=== PATIENT | female | born 1980 | race Caucasian/White ===

== ENCOUNTER 2020-11-05 22:00 | Emergency (ER) | payer OTHER ==
[2020-11-05 23:10] LABS: Anisocytosis Slight; Basophils % (A) 0 %; Eosinophils # (A) 0.1 k/uL (0-0.7); Eosinophils % (A) 0 %; HCT 30.5 % (34.0-46.0); HGB 10.3 gm/dL (11.4-16.0); Lymphocytes # (A) 2.7 k/uL (1.0-4.8); Lymphocytes % (A) 22 %; MCH 30.1 pg (25.0-35.0); MCHC 33.7 g/dL (31.0-37.0); MCV 89.2 fL (80.0-100.0); Mean Platelet Volume 6.2; Monocytes # (A) 0.7 k/uL (0-1.0); Monocytes % (A) 6 %; Neutrophils # (A) 8.7 k/uL (1.3-7.7); Neutrophils % (A) 70 %; Platelet Count 356 k/uL (150-450); RBC 3.42 m/uL (3.80-5.40); RDW 16.8 % (11.5-15.5); WBC 12.4 k/uL (3.8-10.6)
[2020-11-05 23:15] LABS: Calcium 8.8 mg/dL (8.4-10.2); Potassium 4.3 mmol/L (3.5-5.1)
[2020-11-06] LABS: Amphetamine Screen,Urine Not Detected (NotDetected); Benzodiazepines Screen,Urine Detected (NotDetected); Cocaine Screen,Urine Not Detected (NotDetected); Methadone Screen, Urine Not Detected (NotDetected); Opiate Screen,Urine Detected (NotDetected); Phencyclidine Screen,Urine Not Detected (NotDetected); Tricyclic Antidepressant,Urine Detected (NotDetected); Urn Cannabinoid Scrn Detected (NotDetected)
[2020-11-06 00:01] LABS: Barbiturate Screen,Urine Not Detected (NotDetected); Oxycodone Screen, Urine Not Detected (NotDetected)
--- NOTE | 2020-11-06 02:42 | ED ---
Overdose HPI - General Chief Complaint: Overdose Stated Complaint: Overdose Time Seen by Provider: 11/05/20 22:02 Source: EMS Mode of arrival: EMS Limitations: no limitations - History of Present Illness Initial Comments: Patient had passed out after snorting heroin. Motion Designer called EMS, who arrived and found patient awake and alert. Patient reportedly told police/senior case manager that she wished she was . Patient sts that she was feeling ashamed to have used, not having suicidal ideation. MD Complaint: accidental overdose -: minutes(s) How Overdose Was Discovered: family/friend present at time Context: Accidental Overdose: wanted to get high, medication error Treatments Prior to Arrival: none - Related Data Home Medications Medication Instructions Recorded Confirmed ALPRAZolam [Xanax] 1 mg PO TID 10/03/17 10/03/17 HYDROcodone/APAP 10-325MG [[place] 1 tab PO Q6H PRN 10/03/17 10/03/17 10-325] predniSONE [Deltasone] 20 mg PO BID 10/03/17 10/03/17 Previous Rx's Medication Instructions Recorded Sulfamethox-Tmp 800-160Mg [Bactrim 1 tab PO Q12HR #20 tab 10/03/17 DS 800-160 mg] Allergies Allergy/AdvReac Type Severity Reaction Status Date / Time No Known Allergies Allergy Verified 11/05/20 22:03 Review of Systems ROS Statement: Those systems with pertinent positive or pertinent negative responses have been documented in the HPI. ROS Other: All systems not noted in ROS Statement are negative. Constitutional: Denies: fever, chills Eyes: Denies: vision change Respiratory: Denies: cough, dyspnea Cardiovascular: Denies: chest pain, palpitations Gastrointestinal: Denies: abdominal pain, nausea, vomiting Genitourinary: Denies: dysuria, hematuria Musculoskeletal: Denies: back pain Skin: Denies: rash Neurological: Denies: headache, weakness Psychiatric: Denies: depression, visual hallucinations, homicidal thoughts, suicidal thoughts Past Medical History Past Medical History: COPD Additional Past Medical History / Comment(s): chiari type 1 malformation History of Any Multi-Drug Resistant Organisms: None Reported Past Surgical History: Back Surgery Additional Past Surgical History / Comment(s): lumbar fusion surgery Past Psychological History: Anxiety Smoking Status: Current some day smoker Past Alcohol Use History: Occasional Past Drug Use History: Heroin, Marijuana, Opiates General Exam Limitations: no limitations General appearance: alert, in no apparent distress Head exam: Present: atraumatic, normocephalic Eye exam: Present: normal appearance. Absent: scleral icterus, conjunctival injection Neck exam: Present: normal inspection Respiratory exam: Present: normal lung sounds bilaterally. Absent: respiratory distress, wheezes, rales, rhonchi, stridor Cardiovascular Exam: Present: normal rhythm, tachycardia, normal heart sounds. Absent: systolic murmur, diastolic murmur, rubs, gallop GI/Abdominal exam: Present: soft. Absent: distended, tenderness, guarding, rebound, rigid, mass Extremities exam: Present: normal inspection, normal capillary refill. Absent: pedal edema, calf tenderness Back exam: Present: normal inspection. Absent: CVA tenderness (R), CVA tenderness (L) Neurological exam: Present: alert, oriented X3 Psychiatric exam: Absent: homicidal ideation, suicidal ideation Skin exam: Present: warm, dry, normal color, other (large ulcer right forearm healing by secondary intention. No superinfection.) Course Vital Signs 11/05/20 11/05/20 11/06/20 22:04 23:55 01:55 Temperature 98.4 F Pulse Rate 128 H 112 H 88 Respiratory 24 20 18 Rate Blood Pressure 146/95 140/93 137/90 O2 Sat by Pulse 94 L 96 98 Oximetry 11/06/20 02:58 Temperature 98.0 F Pulse Rate 92 Respiratory 20 Rate Blood Pressure 131/92 O2 Sat by Pulse 99 Oximetry Medical Decision Making - Lab Data Result diagrams: 11/05/20 22:44 11/05/20 22:44 Lab Results 11/05/20 11/05/20 11/05/20 Range/Units 22:44 22:44 23:11 WBC 12.4 H (3.8-10.6) k/uL RBC 3.42 L (3.80-5.40) m/uL Hgb 10.3 L (11.4-16.0) gm/dL Hct 30.5 L (34.0-46.0) % MCV 89.2 (80.0-100.0) fL MCH 30.1 (25.0-35.0) pg MCHC 33.7 (31.0-37.0) g/dL RDW 16.8 H (11.5-15.5) % Plt Count 356 (150-450) k/uL MPV 6.2 Neutrophils % 70 % Lymphocytes % 22 % Monocytes % 6 % Eosinophils % 0 % Basophils % 0 % Neutrophils # 8.7 H (1.3-7.7) k/uL Lymphocytes # 2.7 (1.0-4.8) k/uL Monocytes # 0.7 (0-1.0) k/uL Eosinophils # 0.1 (0-0.7) k/uL Basophils # 0.0 (0-0.2) k/uL Anisocytosis Slight Sodium 134 L (137-145) mmol/L Potassium 4.3 (3.5-5.1) mmol/L Chloride 99 (98-107) mmol/L Carbon Dioxide 32 H (22-30) mmol/L Anion Gap 3 mmol/L BUN 22 H (7-17) mg/dL Creatinine 1.09 H (0.52-1.04) mg/dL Est GFR (CKD-EPI)AfAm 74 (>60 ml/min/1.73 sqM) Est GFR (CKD-EPI)NonAf 64 (>60 ml/min/1.73 sqM) Glucose 86 (74-99) mg/dL Calcium 8.8 (8.4-10.2) mg/dL Urine HCG, Qual Not Detected (Not Detectd) Urine Opiates Screen (NotDetected) Ur Oxycodone Screen (NotDetected) Urine Methadone Screen (NotDetected) Ur Propoxyphene Screen (NotDetected) Ur Barbiturates Screen (NotDetected) U Tricyclic Antidepress (NotDetected) Ur Phencyclidine Scrn (NotDetected) Ur Amphetamines Screen (NotDetected) U Methamphetamines Scrn (NotDetected) U Benzodiazepines Scrn (NotDetected) Urine Cocaine Screen (NotDetected) U Marijuana (THC) Screen (NotDetected) 11/05/20 Range/Units 23:11 WBC (3.8-10.6) k/uL RBC (3.80-5.40) m/uL Hgb (11.4-16.0) gm/dL Hct (34.0-46.0) % MCV (80.0-100.0) fL MCH (25.0-35.0) pg MCHC (31.0-37.0) g/dL RDW (11.5-15.5) % Plt Count (150-450) k/uL MPV Neutrophils % % Lymphocytes % % Monocytes % % Eosinophils % % Basophils % % Neutrophils # (1.3-7.7) k/uL Lymphocytes # (1.0-4.8) k/uL Monocytes # (0-1.0) k/uL Eosinophils # (0-0.7) k/uL Basophils # (0-0.2) k/uL Anisocytosis Sodium (137-145) mmol/L Potassium (3.5-5.1) mmol/L Chloride (98-107) mmol/L Carbon Dioxide (22-30) mmol/L Anion Gap mmol/L BUN (7-17) mg/dL Creatinine (0.52-1.04) mg/dL Est GFR (CKD-EPI)AfAm (>60 ml/min/1.73 sqM) Est GFR (CKD-EPI)NonAf (>60 ml/min/1.73 sqM) Glucose (74-99) mg/dL Calcium (8.4-10.2) mg/dL Urine HCG, Qual (Not Detectd) Urine Opiates Screen Detected H (NotDetected) Ur Oxycodone Screen Not Detected (NotDetected) Urine Methadone Screen Not Detected (NotDetected) Ur Propoxyphene Screen Not Detected (NotDetected) Ur Barbiturates Screen Not Detected (NotDetected) U Tricyclic Antidepress Detected H (NotDetected) Ur Phencyclidine Scrn Not Detected (NotDetected) Ur Amphetamines Screen Not Detected (NotDetected) U Methamphetamines Scrn Not Detected (NotDetected) U Benzodiazepines Scrn Detected H (NotDetected) Urine Cocaine Screen Not Detected (NotDetected) U Marijuana (THC) Screen Detected H (NotDetected) Disposition Clinical Impression: Accidental drug overdose Disposition: HOME SELF-CARE Condition: Good Instructions (If sedation given, give patient instructions): Adult Overdose (ED ) Is patient prescribed a controlled substance at d/c from ED?: No Referrals: None,Stated [Primary Care Provider] - 1-2 days
[2020-11-06 03:30] VITALS: BP 131/92; PULSE 92; RESP 20; TEMP 98
== END 2020-11-06 02:58 | disposition home or self-care (01) ==
LOC: EC 22:00
DX: T50.901A Poisoning by unspecified drugs, medicaments and biological substances, accidental (unintentional), initial encounter (principal); J44.9 Chronic obstructive pulmonary disease, unspecified; F41.9 Anxiety disorder, unspecified; F17.200 Nicotine dependence, unspecified, uncomplicated; F12.90 Cannabis use, unspecified, uncomplicated; F11.90 Opioid use, unspecified, uncomplicated; Z79.899 Other long term (current) drug therapy
CPT/HCPCS: 36415; 80048; 80306; 81025; 82075; 85025; 99284

== ENCOUNTER 2021-08-06 13:10 | Inpatient (IN) | payer OTHER ==
[2021-08-06] MEDS ORDERED: PANTOPRAZOLE 40 MG/10 ML VIAL IVP STA (13:54)
--- NOTE | 2021-08-06 14:09 | ED ---
General Adult HPI - General Chief complaint: Weakness Stated complaint: Weakness Time Seen by Provider: 08/06/21 13:54 Source: patient, RN notes reviewed Limitations: no limitations - History of Present Illness Initial comments: Patient is a pleasant 5-year-old female presenting to the emergency department with fatigue. Patient has mild chronic anemia significant worsening over just 6 months ago. Patient was at [facility] last week with hemoglobin of 3.4. Patient was given 2 units of blood with increased to 4.8. Patient has been home the past several days with increasing fatigue. Patient denies any bleeding. No red or bloody stools. - Related Data Home Medications Medication Instructions Recorded Confirmed ALPRAZolam [Xanax] 1 mg PO TID 10/03/17 10/03/17 HYDROcodone/APAP 10-325MG [[place] 1 tab PO Q6H PRN 10/03/17 10/03/17 10-325] predniSONE [Deltasone] 20 mg PO BID 10/03/17 10/03/17 Previous Rx's Medication Instructions Recorded Sulfamethox-Tmp 800-160Mg [Bactrim 1 tab PO Q12HR #20 tab 10/03/17 DS 800-160 mg] Allergies Allergy/AdvReac Type Severity Reaction Status Date / Time No Known Allergies Allergy Verified 08/06/21 13:41 Review of Systems ROS Statement: Those systems with pertinent positive or pertinent negative responses have been documented in the HPI. ROS Other: All systems not noted in ROS Statement are negative. Constitutional: Denies: fever Eyes: Denies: eye pain ENT: Denies: ear pain Respiratory: Denies: cough Cardiovascular: Denies: chest pain Endocrine: Reports: fatigue Gastrointestinal: Denies: abdominal pain, hematemesis, melena, hematochezia Genitourinary: Denies: dysuria Musculoskeletal: Denies: back pain Skin: Denies: rash Neurological: Denies: weakness Past Medical History Past Medical History: COPD Additional Past Medical History / Comment(s): chiari type 1 malformation, anemia History of Any Multi-Drug Resistant Organisms: None Reported Past Surgical History: Back Surgery Additional Past Surgical History / Comment(s): lumbar fusion surgery Past Psychological History: Anxiety Smoking Status: Former smoker Past Alcohol Use History: Occasional Past Drug Use History: Heroin, Marijuana, Opiates General Exam Limitations: no limitations General appearance: alert, in no apparent distress Head exam: Present: normocephalic Eye exam: Present: normal appearance Neck exam: Present: normal inspection Respiratory exam: Present: normal lung sounds bilaterally Cardiovascular Exam: Present: regular rate, normal rhythm GI/Abdominal exam: Present: soft. Absent: tenderness Extremities exam: Present: normal inspection. Absent: pedal edema, calf tenderness Neurological exam: Present: alert Psychiatric exam: Present: normal affect, normal mood Skin exam: Present: normal color Course Vital Signs 08/06/21 13:35 Temperature 98 F Pulse Rate 105 H Respiratory 18 Rate Blood Pressure 136/70 O2 Sat by Pulse 93 L Oximetry EKG Findings - EKG Comments: EKG Findings:: Sinus rhythm with a rate of 96. DC 136. QRS 81. QT 329. QTc 382. Normal axis. Normal QRS. Borderline ST changes V3 V4. Medical Decision Making - Medical Decision Making Patient reevaluated and updated. Troponin added. Case was discussed with Dr. Xie who did evaluate patient and will admit his patient with hematology consult. - Lab Data Result diagrams: 08/06/21 14:01 08/06/21 14:01 Lab Results 08/06/21 08/06/21 08/06/21 Range/Units 13:45 14:01 14:01 WBC 12.9 H (3.8-10.6) k/uL RBC 2.51 L (3.80-5.40) m/uL Hgb 6.8 L* (11.4-16.0) gm/dL Hct 22.9 L (34.0-46.0) % MCV 91.4 (80.0-100.0) fL MCH 27.0 (25.0-35.0) pg MCHC 29.6 L (31.0-37.0) g/dL RDW 18.6 H (11.5-15.5) % Plt Count 479 H (150-450) k/uL MPV 7.8 Neutrophils % 61 % Lymphocytes % 29 % Monocytes % 5 % Eosinophils % 3 % Basophils % 0 % Neutrophils # 7.9 H (1.3-7.7) k/uL Lymphocytes # 3.7 (1.0-4.8) k/uL Monocytes # 0.7 (0-1.0) k/uL Eosinophils # 0.4 (0-0.7) k/uL Basophils # 0.0 (0-0.2) k/uL Hypochromasia Marked Poikilocytosis Moderate Anisocytosis Slight PT 9.6 (9.0-12.0) sec INR 0.9 (<1.2) APTT 18.2 L (22.0-30.0) sec Sodium (137-145) mmol/L Potassium (3.5-5.1) mmol/L Chloride (98-107) mmol/L Carbon Dioxide (22-30) mmol/L Anion Gap mmol/L BUN (7-17) mg/dL Creatinine (0.52-1.04) mg/dL Est GFR (CKD-EPI)AfAm (>60 ml/min/1.73 sqM) Est GFR (CKD-EPI)NonAf (>60 ml/min/1.73 sqM) Glucose (74-99) mg/dL Calcium (8.4-10.2) mg/dL Total Bilirubin (0.2-1.3) mg/dL AST (14-36) U/L ALT (4-34) U/L Alkaline Phosphatase (38-126) U/L Total Protein (6.3-8.2) g/dL Albumin (3.5-5.0) g/dL Urine Color Yellow Urine Appearance Clear (Clear) Urine pH 6.0 (5.0-8.0) Ur Specific [place] 1.027 (1.001-1.035) Urine Protein Negative (Negative) Urine Glucose (UA) Negative (Negative) Urine Ketones Negative (Negative) Urine Blood Negative (Negative) Urine Nitrite Negative (Negative) Urine Bilirubin Negative (Negative) Urine Urobilinogen <2.0 (<2.0) mg/dL Ur Leukocyte Esterase Small H (Negative) Urine RBC 1 (0-5) /hpf Urine WBC 1 (0-5) /hpf Ur Squamous Epith Cells 1 (0-4) /hpf Hyaline Casts 3 H (0-2) /lpf Urine Mucus Rare H (None) /hpf 08/06/21 Range/Units 14:01 WBC (3.8-10.6) k/uL RBC (3.80-5.40) m/uL Hgb (11.4-16.0) gm/dL Hct (34.0-46.0) % MCV (80.0-100.0) fL MCH (25.0-35.0) pg MCHC (31.0-37.0) g/dL RDW (11.5-15.5) % Plt Count (150-450) k/uL MPV Neutrophils % % Lymphocytes % % Monocytes % % Eosinophils % % Basophils % % Neutrophils # (1.3-7.7) k/uL Lymphocytes # (1.0-4.8) k/uL Monocytes # (0-1.0) k/uL Eosinophils # (0-0.7) k/uL Basophils # (0-0.2) k/uL Hypochromasia Poikilocytosis Anisocytosis PT (9.0-12.0) sec INR (<1.2) APTT (22.0-30.0) sec Sodium 133 L (137-145) mmol/L Potassium 4.3 (3.5-5.1) mmol/L Chloride 99 (98-107) mmol/L Carbon Dioxide 30 (22-30) mmol/L Anion Gap 4 mmol/L BUN 17 (7-17) mg/dL Creatinine 0.68 (0.52-1.04) mg/dL Est GFR (CKD-EPI)AfAm >90 (>60 ml/min/1.73 sqM) Est GFR (CKD-EPI)NonAf >90 (>60 ml/min/1.73 sqM) Glucose 78 (74-99) mg/dL Calcium 9.0 (8.4-10.2) mg/dL Total Bilirubin 0.4 (0.2-1.3) mg/dL AST 27 (14-36) U/L ALT 10 (4-34) U/L Alkaline Phosphatase 51 (38-126) U/L Total Protein 6.4 (6.3-8.2) g/dL Albumin 3.5 (3.5-5.0) g/dL Urine Color Urine Appearance (Clear) Urine pH (5.0-8.0) Ur Specific [place] (1.001-1.035) Urine Protein (Negative) Urine Glucose (UA) (Negative) Urine Ketones (Negative) Urine Blood (Negative) Urine Nitrite (Negative) Urine Bilirubin (Negative) Urine Urobilinogen (<2.0) mg/dL Ur Leukocyte Esterase (Negative) Urine RBC (0-5) /hpf Urine WBC (0-5) /hpf Ur Squamous Epith Cells (0-4) /hpf Hyaline Casts (0-2) /lpf Urine Mucus (None) /hpf Disposition Clinical Impression: Anemia Disposition: ADMITTED IP TO THIS HOSP Is patient prescribed a controlled substance at d/c from ED?: No Referrals: Domenico Xie MD [Primary Care Provider] - 1-2 days Decision Time: 15:12
[2021-08-06 14:25] LABS: Appearance,Urine Clear (Clear); Bilirubin,Urine Negative (Negative); Blood,Urine Negative (Negative); Color,Urine Yellow; Glucose,Urine (UA) Negative (Negative); Hyaline Casts,Urine 3 /lpf (0-2); Ketones,Urine Negative (Negative); Leukocyte Esterase,Urine Small (Negative); Mucus,Urine Rare /hpf; Nitrite,Urine Negative (Negative); Protein,Urine Negative (Negative); RBC,Urine 1 /hpf (0-5); Specific Gravity,Urine 1.027 (1.001-1.035); Squamous Epithelial Cell,Urine 1 /hpf (0-4); Urobilinogen,Urine <2.0 mg/dL (<2.0); WBC,Urine 1 /hpf (0-5)
--- NOTE | 2021-08-06 14:34 | XR ---
EXAMINATION TYPE: XR chest 2V DATE OF EXAM: 08/06/2021 COMPARISON: NONE HISTORY: Chest pain TECHNIQUE: Frontal and lateral views of the chest are obtained. FINDINGS: There is no focal air space opacity. No evidence for pneumothorax. No pleural effusion. The cardiac silhouette size is within normal limits. The osseous structures are grossly intact. IMPRESSION: 1. No acute cardiopulmonary process.
[2021-08-06 14:41] LABS: Anisocytosis Slight; Basophils % (A) 0 %; Eosinophils # (A) 0.4 k/uL (0-0.7); Eosinophils % (A) 3 %; HCT 22.9 % (34.0-46.0); Hypochromasia Marked; Lymphocytes # (A) 3.7 k/uL (1.0-4.8); Lymphocytes % (A) 29 %; MCHC 29.6 g/dL (31.0-37.0); MCV 91.4 fL (80.0-100.0); Mean Platelet Volume 7.8; Monocytes # (A) 0.7 k/uL (0-1.0); Monocytes % (A) 5 %; Neutrophils # (A) 7.9 k/uL (1.3-7.7); Neutrophils % (A) 61 %; Platelet Count 479 k/uL (150-450); Poikilocytosis Moderate; RBC 2.51 m/uL (3.80-5.40); RDW 18.6 % (11.5-15.5); WBC 12.9 k/uL (3.8-10.6)
[2021-08-06 14:44] LABS: ALT 10 U/L (4-34); AST 27 U/L (14-36); African American GFR (CKD) >90 (>60 ml/min/1.73 sqM); Albumin 3.5 g/dL (3.5-5.0); Alkaline Phosphatase 51 U/L (38-126); Anion Gap 4 mmol/L; Blood Urea Nitrogen 17 mg/dL (7-17); Carbon Dioxide 30 mmol/L (22-30); Chloride 99 mmol/L (98-107); Glucose 78 mg/dL (74-99); Non-African American GFR(CKD) >90 (>60 ml/min/1.73 sqM); Potassium 4.3 mmol/L (3.5-5.1); Sodium 133 mmol/L (137-145); Total Bilirubin 0.4 mg/dL (0.2-1.3); Total Protein 6.4 g/dL (6.3-8.2)
[2021-08-06 14:47] LABS: HGB 6.8 gm/dL (11.4-16.0)
[2021-08-06 14:52] LABS: INR 0.9 (<1.2); Prothrombin Time 9.6 sec (9.0-12.0)
[2021-08-06 15:03] LABS: Partial Thromboplastin Time 18.2 sec (22.0-30.0)
[2021-08-06] MEDS ORDERED: HYDROcodone/APAP 10-325MG 1 EACH TAB PO ONE (15:09)
[2021-08-06] MEDS ORDERED: NALOXONE 0.4 MG/ML 1 ML VIAL IV PRN (15:12)
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
[2021-08-06] MEDS ORDERED: ALBUTEROL NEBULIZED 2.5 MG/3 ML INHALATION PRN (20:14)
[2021-08-06] MEDS ORDERED: ONDANSETRON 4 MG TAB PO PRN (20:46)
[2021-08-06] MEDS ORDERED: LORazepam 1 MG TAB PO PRN (20:47)
[2021-08-06] MEDS: CYCLOBENZAPRINE 10 MG TAB PO SCH (21:53)
[2021-08-06] MEDS: HYDROcodone/APAP 10-325MG 1 EACH TAB PO PRN (22:51)
[2021-08-07] MEDS: FERROUS SULFATE 325 MG TAB PO SCH (09:01)
[2021-08-07] MEDS: PANTOPRAZOLE 40 MG/10 ML VIAL IV SCH (09:02)
[2021-08-07] MEDS: ALPRAZolam 1 MG TAB PO PRN ×2 (09:19→19:27)
[2021-08-07] MEDS: HYDROcodone/APAP 10-325MG 1 EACH TAB PO PRN ×2 (09:19→16:40)
[2021-08-07 11:37] LABS: Basophils # (A) 0.02 X 10*3/uL (0.00-0.10); Basophils % (A) 0.2 %; Eosinophils # (A) 0.42 X 10*3/uL (0.04-0.35); Eosinophils % (A) 4.8 %; HCT 24.7 % (37.2-46.3); HGB 7.1 g/dL (12.0-15.0); Immature Grans, Automated 0.5 %; Lymphocytes # (A) 3.43 X 10*3/uL (0.90-5.00); Lymphocytes % (A) 39.4 %; MCH 27.1 pg (27.0-32.0); MCHC 28.7 g/dL (32.0-37.0); MCV 94.3 fL (80.0-97.0); Mean Platelet Volume 8.8 fL (9.5-12.2); Monocytes # (A) 0.83 X 10*3/uL (0.20-1.00); Monocytes % (A) 9.5 %; NRBC Per 100 WBC 0.2 /100 WBCS (0.0-0.0); Neutrophils # (A) 3.96 X 10*3/uL (1.80-7.70); Neutrophils % (A) 45.6 %; Platelet Count 336 X 10*3/uL (140-440); RBC 2.62 X 10*6/uL (4.10-5.20); RDW 19.5 % (11.5-14.5)
[2021-08-07 11:59] LABS: African American GFR (CKD) 140.2 (60.0-200.0); Anion Gap 7.2 mmol/L (10.00-18.00); BUN/Creat Ratio 15.93 Ratio (12.00-20.00); Calcium 8.6 mg/dL (8.7-10.3); Carbon Dioxide 28.7 mmol/L (20.0-27.5); Potassium 4.6 mmol/L (3.5-5.5)
[2021-08-07] MEDS: HYDROmorphone 1 MG/ML 1 ML SYRINGE IVP PRN ×2 (13:31→22:02)
--- NOTE | 2021-08-07 15:13 | CONS ---
CONSULTATION DATE OF SERVICE: 08/07/2021 REASON FOR CONSULTATION: Anemia. CHIEF COMPLAINT: Weakness. Thelma is a pleasant 41-year-old lady who presented to the emergency department with progressive fatigue. The patient has been under the care of Dr. Xie, who referred her for admission because of progressive fatigue. She was found to be significantly anemic. She ended up being admitted to the hospital and she received blood transfusion with packed red blood cells. The patient apparently has had chronic anemia for a long time; however, there was recent worsening in her anemia. She did require blood transfusion recently at [facility], and she stated that in the summer of 2020 she was also admitted to [facility] and had a blood transfusion; and also she had a GI workup. The patient denied any fever or chills. She said she had COVID around this past [place] and she has had some choking since then. She is chronically fatigued and tired and she has chronic back pain. She denies any melena, hematochezia, hematuria or hemoptysis. No fever or chills. Her weight has been relatively been relatively stable. No change in her bowel habits. She says she has very occasional and light menstrual periods. She denies any use of NSAIDs or aspirin. PAST MEDICAL HISTORY: Significant for COPD, Chiari-type malformation, lumbar fusion in the past. She has anxiety. She used to use heroin, marijuana and opioids in the past. CURRENT MEDICATION: Reviewed in her electronic medical record. PHYSICAL EXAMINATION: Alert and oriented x3. She does not appear to be in distress. VITAL SIGNS: Temperature 98.2, pulse 87, respiration 20, blood pressure 114/74. HEENT: Normocephalic, atraumatic. No icterus. Neck is supple. CHEST: Equal expansion bilaterally. Lungs are clear to auscultation and percussion. Heart has regular rate and rhythm. Abdomen is soft. No tenderness or organomegaly. Extremities revealed no edema. LYMPHATICS: No peripheral cervical or supraclavicular nodes. MUSCULOSKELETAL: Moving all extremities appropriately. No percussion tenderness over spine or sternum. LABORATORY DATA UPON ADMISSION: WBC of 12.9, hemoglobin 6.8, hematocrit 22.9. Platelets 417. Sodium 139, potassium 4.6, chloride 105. CO2 is 28.7. BUN is 8.0, creatinine 0.1. AST is 27, ALT is 10, alkaline phosphatase 51. IMPRESSION AND RECOMMENDATIONS: Anemia. There is no obvious source to explain blood loss anemia. I am not sure whether her previous laboratory workup done as an outpatient or at [facility] revealed evidence of iron deficiency anemia. I will obtain those records. She also stated she had a GI workup and no obvious source of blood loss anemia was found. Those records will be obtained as well. For the time being, her hemoglobin improved after blood transfusion. If her hemoglobin remains stable, then she would require further evaluation of her recurrent anemia in the outpatient setting. Once her previous reports are obtained and reviewed, then further decisions in regard to her workup for anemia will be made. The above was discussed in detail with the patient. I have answered all of her questions. JUAN DAVID / LESLEE: [id number] /
[2021-08-07] MEDS ORDERED: ALBUTEROL HFA INHALER INHALATION PRN (16:05)
--- NOTE | 2021-08-07 16:20 | PN ---
PROGRESS NOTE I am covering for Dr. Xie. DATE OF SERVICE: 08/07/2021 This 41-year-old woman who was admitted with generalized weakness was found to have significant anemia. The patient also had recent COVID-19 infection. The patient was transfused and hemoglobin is currently 7.1, improved from 6.8. The patient also has some nucleated RBCs in the peripheral smear. COVID-19 is still positive. Patient had multiple transfusions at [facility], also. Dr. Wild is seeing the patient and recommended obtaining the old records and continuing to monitor the hemoglobin. Past medical history reviewed. REVIEW OF SYSTEMS: CARDIOVASCULAR SYSTEM: No angina. RESPIRATION: As mentioned earlier. GI: As mentioned earlier. : No dysuria. NERVOUS SYSTEM: No numbness, weakness. CURRENT MEDICATIONS: Reviewed. They include [place], Xanax, Flexeril, iron sulfate, Dilaudid, Narcan. PHYSICAL EXAMINATION: Patient is alert and oriented x3. Pulse 86, blood pressure 140/70, respiration 20, temperature 98.2, pulse ox 100% on 4 L. HEENT: Conjunctivae pale. NECK: No jugular venous distention. CARDIOVASCULAR: S1, S2 muffled. RESPIRATION: Breath sounds diminished at the bases. A few scattered rhonchi. ABDOMEN: Soft, nontender. LEGS: No edema. No swelling. NERVOUS SYSTEM: No focal deficit. LABS: Labs at this time show WBC 8.7, hemoglobin 7.1. ASSESSMENT: 1. Acute on chronic anemia for evaluation. 2. Rule out gastrointestinal blood loss anemia. 3. Rule out hematological abnormalities. 4. Hyponatremia. 5. COVID-19 positive. 6. Chronic obstructive pulmonary disease. 7. Chiari-type 1 malformation. 8. History of anemia. 9. History of anxiety. RECOMMENDATIONS AND DISCUSSION: In this 41-year-old woman who presented with multiple complex medical issues and anemia, at this time I recommend continuing to monitor the CBC and BMP. Continue with iron supplementation. Otherwise, the patient previously had apparently a colonoscopy. Also recommend surgical consultation for possible upper endoscopy to rule out any upper GI source of bleeding. The prognosis is guarded because of multiple complex medical issues. Further recommendations to follow. See orders for further details. MMODL / IJN: [id number] / MTDD
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
[2021-08-07] MEDS: CYCLOBENZAPRINE 10 MG TAB PO SCH (20:52)
[2021-08-08] MEDS: HYDROcodone/APAP 10-325MG 1 EACH TAB PO PRN ×4 (00:02→18:04)
[2021-08-08] MEDS: PANTOPRAZOLE 40 MG/10 ML VIAL IV SCH (07:30)
[2021-08-08] MEDS: HYDROmorphone 1 MG/ML 1 ML SYRINGE IVP PRN ×2 (07:30→16:12)
[2021-08-08] MEDS: FERROUS SULFATE 325 MG TAB PO SCH (07:30)
[2021-08-08] MEDS: ALPRAZolam 1 MG TAB PO PRN ×2 (10:14→20:31)
--- NOTE | 2021-08-08 12:06 | P.GSCN ---
History of Present Illness Consult date: 08/08/21 Reason for Consult: Anemia History of present illness: This a 41-year-old female who was admitted to the hospital with anemia. Patient just had a recent hospital admission at [facility] for anemia. She states her pain was in the 3 range. She states that she has had some intermittent rectal bleeding with melanotic stools in the past. The patient denies any active GI bleed today. Past Medical History Past Medical History: COPD Additional Past Medical History / Comment(s): chiari type 1 malformation, anemia History of Any Multi-Drug Resistant Organisms: None Reported Past Surgical History: Back Surgery Additional Past Surgical History / Comment(s): lumbar fusion surgery Past Psychological History: Anxiety Smoking Status: Former smoker Past Alcohol Use History: Occasional Past Drug Use History: Heroin, Marijuana, Opiates Medications and Allergies Home Medications Medication Instructions Recorded Confirmed Type ALPRAZolam [Xanax] 1 mg PO TID PRN 10/03/17 08/06/21 History HYDROcodone/APAP 10-325MG [[place] 1 tab PO Q6H PRN 10/03/17 08/06/21 History 10-325] predniSONE [Deltasone] 20 mg PO BID 10/03/17 08/06/21 History Albuterol Nebulized [Ventolin 2.5 mg INHALATION RT-QID PRN 08/06/21 08/06/21 History Nebulized] Albuterol Sulfate [Ventolin HFA] 1 - 2 puff INHALATION RT-Q4H PRN 08/06/21 08/06/21 History Cyclobenzaprine [Flexeril] 10 mg PO HS 08/06/21 08/06/21 History Ferrous Sulfate [Feosol] 325 mg PO DAILY 08/06/21 08/06/21 History Furosemide [Lasix] 20 mg PO BID 08/06/21 08/06/21 History Qvar(Unknown) 2 puff INHALATION RT-BID 08/06/21 08/06/21 History Allergies Allergy/AdvReac Type Severity Reaction Status Date / Time fentanyl AdvReac Hallucinati Verified 08/06/21 15:48 ons Surgical - Exam Vital Signs Temp Pulse Resp BP Pulse Ox 98 F 105 H 18 136/70 93 L 08/06/21 13:35 08/06/21 13:35 08/06/21 13:35 08/06/21 13:35 08/06/21 13:35 - General well developed, well nourished, no distress - Eyes PERRL - ENT normal pinna - Neck no masses - Respiratory normal expansion - Cardiovascular Rhythm: regular - Abdomen Abdomen: soft, non tender Results - Labs 08/07/21 07:11 08/07/21 07:11 Assessment and Plan Assessment: Anemia with history of GI bleed. Patient undergo EGD and colonoscopy in the a.m.
[2021-08-08] MEDS ORDERED: PEG 3350-NA SULF,BICARB,CL/KCL 4,000 ML BOTTLE PO ONE (12:30)
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
--- NOTE | 2021-08-08 19:22 | PN ---
PROGRESS NOTE DATE OF SERVICE: 08/08/2021 This 41-year-old woman who was admitted with acute on chronic anemia is also being evaluated for GI blood loss anemia. The patient is cleared to have EGD tomorrow by Surgery. The hemoglobin is only 7.1. COVID-19 is positive. Hematology/Oncology is following the patient closely. Past medical history reviewed. REVIEW OF SYSTEMS: CARDIOVASCULAR SYSTEM: No angina. RESPIRATION: As mentioned earlier. GI: As mentioned earlier. : No dysuria. NERVOUS SYSTEM: No numbness, weakness. CURRENT MEDICATIONS: Reviewed. They include [place], Ventolin, Xanax, Flexeril, iron sulfate, Dilaudid. PHYSICAL EXAMINATION: Pulse 88, blood pressure 155/97, respirations 17, temperature 98.2. HEENT: Conjunctivae pale. Oral mucosa pale. CARDIOVASCULAR: S1, S2 muffled. RESPIRATION: Breath sounds diminished at the bases. A few scattered rhonchi. ABDOMEN: Soft, nontender. NERVOUS SYSTEM: No focal deficit. LABS: WBC 8.6, hemoglobin 7.1. Sodium 139, potassium 4.6. ASSESSMENT: 1. Acute on chronic anemia for evaluation. 2. Rule out gastrointestinal blood loss anemia. 3. Rule out hematological abnormalities. 4. Hyponatremia. 5. COVID-19 positive. 6. Chronic obstructive pulmonary disease. 7. Chiari type 1 malformation. RECOMMENDATIONS AND DISCUSSION: I recommend to continue current medications, continue with the monitoring, symptomatic treatment. See orders for further details. Labs are ordered. Repeat CBC. Otherwise, closely follow with Hematology/Oncology. EGD per Surgery. Prognosis guarded. Further recommendations to follow. MMODL / IJN: [id number] /
[2021-08-08 19:27] LABS: Reticulocyte % 3.6 % (0.5-2.0)
[2021-08-08 19:33] LABS: C Reactive Protein 0.7 mg/dL (<1.0); LDH 340 U/L (313-618)
[2021-08-08] MEDS: FLUTICASONE 110 MCG INHALER INHALATION SCH (19:45)
[2021-08-08] MEDS: CYCLOBENZAPRINE 10 MG TAB PO SCH (20:31)
[2021-08-08 21:08] LABS: Erythrocyte Sedimentation Rate 47 mm/hr (0-20)
[2021-08-09] MEDS: HYDROmorphone 1 MG/ML 1 ML SYRINGE IVP PRN ×2 (00:17→09:17)
[2021-08-09 09:07] LABS: Basophils # (A) 0.01 X 10*3/uL (0.00-0.10); Basophils % (A) 0.1 %; Eosinophils # (A) 0.49 X 10*3/uL (0.04-0.35); Eosinophils % (A) 5.5 %; HCT 30.5 % (37.2-46.3); HGB 8.9 g/dL (12.0-15.0); Immature Grans, Automated 0.3 %; Lymphocytes # (A) 3.11 X 10*3/uL (0.90-5.00); Lymphocytes % (A) 34.7 %; MCH 26.8 pg (27.0-32.0); MCHC 29.2 g/dL (32.0-37.0); MCV 91.9 fL (80.0-97.0); Monocytes # (A) 0.95 X 10*3/uL (0.20-1.00); Monocytes % (A) 10.6 %; NRBC Per 100 WBC 0 /100 WBCS (0.0-0.0); Neutrophils # (A) 4.37 X 10*3/uL (1.80-7.70); Neutrophils % (A) 48.8 %; Platelet Count 414 X 10*3/uL (140-440); RBC 3.32 X 10*6/uL (4.10-5.20); WBC 8.96 X 10*3/uL (4.50-10.00)
[2021-08-09 09:14] LABS: ALT 9 U/L (8-44); AST 11 U/L (13-35); African American GFR (CKD) 132.9 (60.0-200.0); Albumin 3.5 g/dL (3.8-4.9); Alkaline Phosphatase 66 U/L (41-126); BUN/Creat Ratio 17.97 Ratio (12.00-20.00); Blood Urea Nitrogen 10.6 mg/dL (9.0-27.0); Calcium 8.9 mg/dL (8.7-10.3); Chloride 100 mmol/L (96-109); Globulin 2.5 g/dL (1.6-3.3); Glucose 78 mg/dL (70-110); Non-African American GFR(CKD) 114.7 (60.0-200.0); Potassium 4.6 mmol/L (3.5-5.5); Sodium 135 mmol/L (135-145); Total Bilirubin <0.15 mg/dL (0.30-1.20); Total Protein 5.9 g/dL (6.2-8.2)
[2021-08-09] MEDS: PANTOPRAZOLE 40 MG/10 ML VIAL IV SCH (09:20)
[2021-08-09] MEDS: FLUTICASONE 110 MCG INHALER INHALATION SCH (09:49)
[2021-08-09] MEDS: ALPRAZolam 1 MG TAB PO PRN (10:24)
[2021-08-09] MEDS: HYDROcodone/APAP 10-325MG 1 EACH TAB PO PRN (11:44)
[2021-08-09] MEDS ORDERED: PROPOFOL 10 MG/ML 20 ML VIAL IV ONE (14:20)
[2021-08-09] MEDS ORDERED: LIDOCAINE 1% INJ 10MG/ML (20 ML MDV) ONE (14:20)
[2021-08-09] MEDS ORDERED: SODIUM CHLORIDE 0.9% 1,000 ML IV ONE (14:23)
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
[2021-08-09 15:03] VITALS: RESP 16; TEMP 97.6
--- NOTE | 2021-08-09 16:01 | P.PN ---
Subjective Progress Note Date: 08/09/21 Principal diagnosis: anemia In f/u today pt denies chest pain, bleeding, heavy menses, she does not use ibuprofen, motrin, asa, anticoagulation. No current bleeding to report. She is covid positive Objective - Vital Signs Vital signs: Vital Signs Temp 98.4 F 08/09/21 09:34 Pulse 105 H 08/09/21 09:34 Resp 18 08/09/21 09:34 BP 116/60 08/09/21 09:34 Pulse Ox 97 08/09/21 09:34 Intake & Output 08/08/21 08/09/21 08/09/21 18:59 06:59 18:59 Intake Total 500 Balance 500 Intake: Oral 500 Other: # Voids 2 2 - Exam Hands on exam deferred 2/ covid infection - Constitutional General appearance: Present: average body habitus, cooperative, no acute distress - EENT Eyes: Present: anicteric sclerae, EOMI ENT: Present: hearing grossly normal - Respiratory Details: resp even and unlabored at rest - Integumentary Integumentary: Present: pale - Neurologic Neurologic: Present: CNII-XII intact - Musculoskeletal Musculoskeletal: Present: strength equal bilaterally - Psychiatric Psychiatric: Present: A&O x's 3, appropriate affect, intact judgment & insight - Labs CBC & Chem 7: 08/09/21 06:48 08/09/21 06:48 Labs: Abnormal Lab Results - Last 24 Hours (Table) 08/08/21 08/09/21 08/09/21 Range/Units 18:59 06:48 06:48 RBC 3.32 L (4.10-5.20) X 10*6/uL Hgb 8.9 L (12.0-15.0) g/dL Hct 30.5 L (37.2-46.3) % MCH 26.8 L (27.0-32.0) pg MCHC 29.2 L (32.0-37.0) g/dL RDW 19.0 H (11.5-14.5) % MPV 9.0 L (9.5-12.2) fL Eosinophils # 0.49 H (0.04-0.35) X 10*3/uL ESR 47 H (0-20) mm/hr Retic Count 3.6 H (0.5-2.0) % Anion Gap 9.70 L (10.00-18.00) mmol/L Total Bilirubin <0.15 L (0.30-1.20) mg/dL AST 11 L (13-35) U/L Total Protein 5.9 L (6.2-8.2) g/dL Albumin 3.5 L (3.8-4.9) g/dL Albumin/Globulin Ratio 1.40 L (1.60-3.17) g/dL Assessment and Plan (1) COVID-19 Narrative/Plan: Currently mild symptoms. Defer mgmt to IM Current Visit: Yes Status: Acute Priority: High Code(s): U07.1 - COVID-19 SNOMED Code(s): 949385628 (2) Anemia Narrative/Plan: Pt had work up for anemia Jan 2021 at [facility]. Will get documents, testing results and place in this medical record. Iron studies on pre-transfusion blood if able Current Visit: Yes Status: Acute Priority: High Code(s): D64.9 - ANEMIA, UNSPECIFIED SNOMED Code(s): 470732410 Plan: Doctor attests: I performed a history and physical examination of this patient, developed impression and plan of care, discussed with dictator. I agree with dictators note, documented as a scribe.
[2021-08-09] MEDS: FERROUS SULFATE 325 MG TAB PO SCH (16:06)
[2021-08-09 16:41] VITALS: BP 122/83; PULSE 93
[2021-08-10 00:40] LABS: % Iron Saturation 3.62 (12.00-45.00); Ferritin 32.9 ng/mL (10.0-291.0)
--- NOTE | 2021-08-10 14:40 | P.DS ---
Providers Date of admission: 08/06/21 15:12 Expected date of discharge: 08/09/21 Attending physician: Domenico Xie Consults: 08/06/21 15:13 Consult Physician Routine Consulting Provider: Jez Marr Consult Reason/Comments: anemia Do you want consulting provider notified?: Yes 08/06/21 15:16 Consult Physician Urgent Consulting Provider: Abdiaziz Engle Consult Reason/Comments: cardiac eval Do you want consulting provider notified?: Yes 08/07/21 11:57 Consult Physician Routine Consulting Provider: Willy Quan Consult Reason/Comments: EGD Do you want consulting provider notified?: Yes Primary care physician: Domenico Xie Hospital Course: Final diagnosis Acute on chronic anemia for evaluation Rule out gastrointestinal blood loss anemia Rule out hematological abnormalities Hyponatremia COVID-19 positive chronic obstructive pulmonary disease Chiari type I malformation Discharge disposition Patient is being discharged in a stable condition with guarded prognosis to home. Patient will follow-up with Dr. Xie in the outpatient setting upon discharge. Patient is to also follow-up with general surgery for outpatient colonoscopy. Recommend repeat labs to monitor CBC and prescription was provided. Total time taken is greater than 35 minutes. Hospital course This is a 41-year-old female who was recently admitted acute on chronic anemia also being closely monitored by general surgery for GI blood loss anemia and scheduled to undergo EGD with colonoscopy although patient was not prepped enough and continued with stool noted on colonoscopy and will follow-up outpatient with Dr. Quan. Hemoglobin improved to 8.6 today and recommend repeat labs in 2-3 days to monitor CBC and also further hematology workup in the outpatient setting. She encouraged to follow-up with primary care provider Dr. Xie on discharge and also pain management in the outpatient setting. Currently no reports of chest pain, shortness of breath, or palpitations. Patient is afebrile. No reports of nausea or vomiting and patient is tolerating diet. Patient will be discharged home today. On exam vital signs are stable. Cardio S1, S2 are muffled. Respiratory system shows diminished breath sounds at the bases with no wheezing or rhonchi noted. Abdomen is soft and nontender. Nervous system shows no focal deficits. Please refer to medication reconciliation sheet for a list of medications. Patient Condition at Discharge: Fair Plan - Discharge Summary Discharge Rx Participant: Yes New Discharge Prescriptions: New Pantoprazole Sodium [Protonix] 40 mg PO DAILY #30 tab oxyCODONE HCL/ACETAMINOPHEN [Percocet 5-325 mg] 1 tab PO Q6HR PRN #6 tab PRN Reason: Pain Continue ALPRAZolam [Xanax] 1 mg PO TID PRN PRN Reason: Anxiety Ferrous Sulfate [Iron (65 MG Elemental)] 325 mg PO DAILY Albuterol Sulfate [Ventolin HFA] 1 - 2 puff INHALATION RT-Q4H PRN PRN Reason: Shortness Of Breath Cyclobenzaprine [Flexeril] 10 mg PO HS Albuterol Nebulized [Ventolin Nebulized] 2.5 mg INHALATION RT-QID PRN PRN Reason: Shortness Of Breath Qvar(Unknown) 2 puff INHALATION RT-BID Discontinued predniSONE [Deltasone] 20 mg PO BID HYDROcodone/APAP 10-325MG [[place] 10-325] 1 tab PO Q6H PRN PRN Reason: Pain Furosemide [Lasix] 20 mg PO BID Discharge Medication List ALPRAZolam [Xanax] 1 mg PO TID PRN 10/03/17 [History] Albuterol Nebulized [Ventolin Nebulized] 2.5 mg INHALATION RT-QID PRN 08/06/21 [History] Albuterol Sulfate [Ventolin HFA] 1 - 2 puff INHALATION RT-Q4H PRN 08/06/21 [History] Cyclobenzaprine [Flexeril] 10 mg PO HS 08/06/21 [History] Ferrous Sulfate [Iron (65 MG Elemental)] 325 mg PO DAILY 08/06/21 [History] Qvar(Unknown) 2 puff INHALATION RT-BID 08/06/21 [History] Pantoprazole Sodium [Protonix] 40 mg PO DAILY #30 tab 08/09/21 [Rx] oxyCODONE HCL/ACETAMINOPHEN [Percocet 5-325 mg] 1 tab PO Q6HR PRN #6 tab 08/09/21 [Rx] Follow up Appointment(s)/Referral(s): Domenico Xie MD [Primary Care Provider] - 1-2 days Cecilia Wild MD [STAFF PHYSICIAN] - 1 Week Willy Quan MD [STAFF PHYSICIAN] - 1 Week Ambulatory/Diagnostic Orders: Complete Blood Count w/diff [LAB.AMB] Time Frame: 3 Days, Location: None Selected Patient Instructions/Handouts: Anemia (DC) Activity/Diet/Wound Care/Special Instructions: Activity limited until follow up follow up with pcp this week Follow-up hematology outpatient for further anemia workup Patient needs to follow-up with pain management for other medications follow up surgery outpatient for colonoscopy in the outpatient setting take medications as prescribed follow up cardiology outpatient repeat labs in 2/3 days continue current regular diet Discharge Disposition: HOME SELF-CARE
--- NOTE | 2021-08-12 09:25 | CDI ---
Documentation Clarification Form Date: 08/12/2021 08:54:00 AM From: Amy Arevalo Admit Date: 08/03/2021 03:55:00 AM Patient Name: Brian Huang Visit Number: [id number] Discharge Date: 08/09/2021 09:42:00 PM ATTENTION: The Clinical Documentation Specialists (CDI) and [facility] Coding Staff appreciate your assistance in clarifying documentation. Please respond to the clarification below the line at the bottom and electronically sign. The CDI & [facility] Coding staff will review the response and follow-up if needed. Please note: Queries are made part of the Legal Health Record. If you have any questions, please contact the author of this message via ITS. Dr. Terri Koch Conflicting documentation has been found in the medical record. As attending physician, please provide clarification. Nephrology consult documents patient with CKD stage III B PN 08/09/2021 documents CKD stage IIIa History/Risk Factors: UA with trace of proteinuria. Patient diabetic and HTN Clinical Indicators: BUN on admit 42 CREAT 1.68 GFR AF 45 NonAF 39 Treatment: IV Lasix ultrasound kidneys Please clarify which diagnosis is most appropriate: [ ] CKD Stage IIIa [ ] CKD Stage IIIb [ ] Other (please specify) [ ] Unable to determine stage 3b MTDD
--- NOTE | 2021-08-12 10:07 | CDI ---
Documentation Clarification Form Date: 08/12/2021 09:53:00 AM From: Amy Arevalo Admit Date: 08/06/2021 03:12:00 PM Patient Name: Thelma Wei Visit Number: [id number] Discharge Date: 08/09/2021 04:44:00 PM ATTENTION: The Clinical Documentation Specialists (CDI) and [facility] Coding Staff appreciate your assistance in clarifying documentation. Please respond to the clarification below the line at the bottom and electronically sign. The CDI & [facility] Coding staff will review the response and follow-up if needed. Please note: Queries are made part of the Legal Health Record. If you have any questions, please contact the author of this message via ITS. Dr. Domenico Xie Per several PN's, DCS and H and P, Patient is Covid 19 positive. Per H and P Chief complaint is Covid 19 and chronic pneumonia. Please clarify if pneumonia is Covid pneumonia. Additional clarification regarding the type of pneumonia is requested. History/Risk Factors: Covid 19 at [place] and currently positive. Clinical Indicators: WBC/Left shift: 12.9 X-ray: No acute pulmonary process Treatment: Bedrest IV fluids O2 93% RA down to 86% 2 NC Please clarify the type of pneumonia, if known: [ ] Covid Pneumoia [ ] Bacterial Pneumonia, specify causal organism (if known) [ ] Gram Negative Bacterial Pneumonia [ ] Pneumonia ruled out [ ] Other bacteria (please specify) [ ] Viral Pneumonia, specify casual organism (if known) [ ] Other, please specify [ ] Unable to determine MTDD
--- NOTE | 2021-08-12 20:26 | MISC ---
MISCELLANOUS REPORT QUERY: COVID pneumonia. MMODL / IJN: [id number] /
== END 2021-08-09 16:44 | disposition home or self-care (01) | DRG 377 ==
LOC: EC 13:10 → 5NMEDONC 15:12 → 4SSUR 17:34
PROVIDERS: ADMIT Family Medicine; ATTEND Family Medicine
PROC: 30233N1 Transfusion of Nonautologous Red Blood Cells into Peripheral Vein, Percutaneous Approach (ICD-10-PCS; 2021-08-06)
PROC: 0DB58ZX Excision of Esophagus, Via Natural or Artificial Opening Endoscopic, Diagnostic (ICD-10-PCS; principal; 2021-08-09 09:10)
DX: K92.2 Gastrointestinal hemorrhage, unspecified (principal); G93.5 Compression of brain; U07.1 COVID-19; J12.82 Pneumonia due to coronavirus disease 2019; D62 Acute posthemorrhagic anemia; E87.1 Hypo-osmolality and hyponatremia; J44.0 Chronic obstructive pulmonary disease with (acute) lower respiratory infection; F41.9 Anxiety disorder, unspecified; D50.9 Iron deficiency anemia, unspecified; V89.2XXS Person injured in unspecified motor-vehicle accident, traffic, sequela; G89.29 Other chronic pain; Z87.891 Personal history of nicotine dependence; Z98.1 Arthrodesis status; Z53.9 Procedure and treatment not carried out, unspecified reason; M54.9 Dorsalgia, unspecified; Z88.5 Allergy status to narcotic agent; Z79.51 Long term (current) use of inhaled steroids; Z79.52 Long term (current) use of systemic steroids; Z79.899 Other long term (current) drug therapy; Z86.16 Personal history of COVID-19
CPT/HCPCS: 36415; 43239; 45378; 71046; 80048; 80053; 81001; 82533; 82607; 82728; 83010; 83540; 83550; 83615; 83921; 84484; 85025; 85045; 85610; 85652; 85730; 86140; 86850; 86900; 86901; 86920; 87635; 88305; 88312; 93005; 94640; 94760; 96374; 99285

== ENCOUNTER 2021-09-26 15:14 | Emergency (ER) | payer OTHER ==
[2021-09-26] MEDS ORDERED: KETOROLAC 15 MG/ML 1 ML VIAL IVP STA (15:22)
[2021-09-26] MEDS ORDERED: LORazepam 2 MG/ML INJ IV STA (15:22)
--- NOTE | 2021-09-26 15:25 | ED ---
General Adult HPI - General Source: patient, RN notes reviewed, old records reviewed <Arvin Rios - Last Filed: 09/26/21 15:56> <Watson Beasley - Last Filed: 09/26/21 17:20> - General Stated complaint: weakness Time Seen by Provider: 09/26/21 15:14 - History of Present Illness Initial comments: This is a 41-year-old female presents emergency Department complaining that over the last couple days she has felt weaker and fatigued. Patient states when this happened the past needed a blood transfusion. Patient also states her anxiety is getting the best of her. She has been extremely anxious today. Also states that she should like her lungs checked out because last time she was in she had pneumonia. Patient denies any fever chills per patient denies any chest pain or palpitations. Patient denies abdominal pain patient denies nausea vomiting diarrhea. Patient states she's got chronic low back pain and chronic left knee pain. (Arvin Rios) - Related Data Home Medications Medication Instructions Recorded Confirmed ALPRAZolam [Xanax] 1 mg PO TID PRN 10/03/17 09/26/21 Albuterol Nebulized [Ventolin 2.5 mg INHALATION RT-QID PRN 08/06/21 09/26/21 Nebulized] Albuterol Sulfate [Ventolin HFA] 1 - 2 puff INHALATION RT-Q4H PRN 08/06/21 09/26/21 Cyclobenzaprine [Flexeril] 10 mg PO HS 08/06/21 09/26/21 FLUoxetine HCL [PROzac] 10 mg PO DAILY 09/26/21 09/26/21 Furosemide [Lasix] 20 mg PO BID 09/26/21 09/26/21 HYDROcodone/APAP 10-325MG [[place] 1 tab PO Q6H PRN 09/26/21 09/26/21 10-325] Iron(Unknown Dose) 1 tab PO TID 09/26/21 09/26/21 QUEtiapine [SEROquel] 100 mg PO HS 09/26/21 09/26/21 predniSONE [Deltasone] 20 mg PO BID 09/26/21 09/26/21 Allergies Allergy/AdvReac Type Severity Reaction Status Date / Time fentanyl AdvReac Hallucinati Verified 09/26/21 17:00 ons Review of Systems ROS Other: All systems not noted in ROS Statement are negative. <Arvin Rios - Last Filed: 09/26/21 15:56> ROS Other: All systems not noted in ROS Statement are negative. <Watson Beasley - Last Filed: 09/26/21 17:20> ROS Statement: Those systems with pertinent positive or pertinent negative responses have been documented in the HPI. Past Medical History Past Medical History: COPD Additional Past Medical History / Comment(s): chiari type 1 malformation, anemia History of Any Multi-Drug Resistant Organisms: None Reported Past Surgical History: Back Surgery Additional Past Surgical History / Comment(s): lumbar fusion surgery Past Psychological History: Anxiety Smoking Status: Former smoker Past Alcohol Use History: Occasional Past Drug Use History: Heroin, Marijuana, Opiates <Arvin Rios - Last Filed: 09/26/21 15:56> General Exam <Arvin Rios - Last Filed: 09/26/21 15:56> - General Exam Comments Initial Comments: GENERAL: Patient is well-developed and well-nourished. Patient is nontoxic and well- hydrated and is in no acute distress. ENT: Neck is soft and supple. No significant lymphadenopathy is noted. Oropharynx is clear. Moist mucous membranes. Neck has full range of motion without eliciting any pain. EYES: The sclera were anicteric and conjunctiva were pink and moist. Extraocular movements were intact and pupils were equal round and reactive to light. Eyelids were unremarkable. PULMONARY: Unlabored respirations. Good breath sounds bilaterally. No audible rales rhonchi or wheezing was noted. CARDIOVASCULAR: There is a regular rate and rhythm without any murmurs gallops or rubs. ABDOMEN: Soft and nontender with normal bowel sounds. SKIN: Skin is clear with no lesions or rashes and otherwise unremarkable. NEUROLOGIC: Patient is alert and oriented x3. Cranial nerves II through XII are grossly intact. Motor and sensory are also intact. Normal speech, volume and content. Symmetrical smile. MUSCULOSKELETAL: Normal extremities with adequate strength and full range of motion. LYMPHATICS: No significant lymphadenopathy is noted PSYCHIATRIC: Patient is very anxious. (Arvin Rios) Course <DanielladelvispoloWatson - Last Filed: 09/26/21 17:20> Vital Signs 09/26/21 15:18 Pulse Rate 121 H Respiratory 24 Rate Blood Pressure 150/96 O2 Sat by Pulse 96 Oximetry - Reevaluation(s) Reevaluation #1: 09/26/21 17:14 Patient was endorsed to me by Dr. Rios (secondary to shift change) with the patient's labs and chest x-ray pending. Patient reports feeling generally weak and anxious, and she was concerned that she may be anemic. Patient's hemoglobin is 11.0, which is higher than she has been in the past. The rest of the patient's labs do not provide any definite explanation for the patient's symptoms, although her urine drug screen does demonstrate that she has been taking multiple medications that could cause her symptoms. Patient's UA and urine test are still pending at this time, the patient states that she wishes to "sign myself out" AGAINST MEDICAL ADVICE at this time. Patient states that she needs to get home, and she states that her mother is coming to the ED to pick her up. Patient is A and O 4 and completely coherent at this time. Patient was clearly explained the risks of leaving AMA, including further morbidity and even in the worse case situation. Patient is able to verbalize understanding of these risks, and she still wishes to leave AMA at this time. Patient was instructed to return to the ED should she change her mind or develop new or worsening symptoms. Patient was also instructed to follow up closely with her primary care provider. Patient to sign AMA paperwork prior leaving the ED today. (Watson Beasley) Medical Decision Making <Arvin Rios - Last Filed: 09/26/21 15:56> - Lab Data Result diagrams: 09/26/21 15:34 09/26/21 15:34 <Watson Beasley - Last Filed: 09/26/21 17:20> - Medical Decision Making Dr. Aaliyah zamarripa OB taking over the care of this patient at 4 PM (Arvin Rios) - Lab Data Lab Results 09/26/21 09/26/21 09/26/21 Range/Units 13:42 15:34 15:34 WBC 11.7 H (3.8-10.6) k/uL RBC 3.59 L (3.80-5.40) m/uL Hgb 11.0 L D (11.4-16.0) gm/dL Hct 34.7 (34.0-46.0) % MCV 96.7 D (80.0-100.0) fL MCH 30.5 (25.0-35.0) pg MCHC 31.6 (31.0-37.0) g/dL RDW 18.3 H (11.5-15.5) % Plt Count 350 (150-450) k/uL MPV 7.0 Neutrophils % 65 % Lymphocytes % 24 % Monocytes % 6 % Eosinophils % 3 % Basophils % 0 % Neutrophils # 7.6 (1.3-7.7) k/uL Lymphocytes # 2.8 (1.0-4.8) k/uL Monocytes # 0.7 (0-1.0) k/uL Eosinophils # 0.3 (0-0.7) k/uL Basophils # 0.1 (0-0.2) k/uL Hypochromasia Slight Anisocytosis Slight Sodium 131 L (137-145) mmol/L Potassium 4.4 (3.5-5.1) mmol/L Chloride 98 (98-107) mmol/L Carbon Dioxide 28 (22-30) mmol/L Anion Gap 5 mmol/L BUN 21 H (7-17) mg/dL Creatinine 0.72 (0.52-1.04) mg/dL Est GFR (CKD-EPI)AfAm >90 (>60 ml/min/1.73 sqM) Est GFR (CKD-EPI)NonAf >90 (>60 ml/min/1.73 sqM) Glucose 108 H (74-99) mg/dL Calcium 9.1 (8.4-10.2) mg/dL Total Bilirubin 0.3 (0.2-1.3) mg/dL AST 49 H (14-36) U/L ALT 28 (4-34) U/L Alkaline Phosphatase 123 (38-126) U/L Total Protein 6.4 (6.3-8.2) g/dL Albumin 3.5 (3.5-5.0) g/dL Urine Opiates Screen Detected H (NotDetected) Ur Oxycodone Screen Detected H (NotDetected) Urine Methadone Screen Not Detected (NotDetected) Ur Propoxyphene Screen Not Detected (NotDetected) Ur Barbiturates Screen Not Detected (NotDetected) U Tricyclic Antidepress Detected H (NotDetected) Ur Phencyclidine Scrn Not Detected (NotDetected) Ur Amphetamines Screen Not Detected (NotDetected) U Methamphetamines Scrn Not Detected (NotDetected) U Benzodiazepines Scrn Detected H (NotDetected) Urine Cocaine Screen Not Detected (NotDetected) U Marijuana (THC) Screen Not Detected (NotDetected) - Radiology Data Chest x-ray: No acute cardiopulmonary process. (Watson Beasley) Disposition <Arvin Rios - Last Filed: 09/26/21 15:56> Is patient prescribed a controlled substance at d/c from ED?: No Time of Disposition: 17:14 <Watson Beasley - Last Filed: 09/26/21 17:20> Clinical Impression: Weakness, Anxiety Disposition: Left Against Medical Advice Condition: Stable Referrals: Domenico Xie MD [Primary Care Provider] - 1-2 days
[2021-09-26 15:31] VITALS: BP 150/96; PULSE 121; RESP 24
[2021-09-26 15:46] LABS: Anisocytosis Slight; Basophils # (A) 0.1 k/uL (0-0.2); Basophils % (A) 0 %; Eosinophils # (A) 0.3 k/uL (0-0.7); Eosinophils % (A) 3 %; HCT 34.7 % (34.0-46.0); Hypochromasia Slight; Lymphocytes # (A) 2.8 k/uL (1.0-4.8); Lymphocytes % (A) 24 %; MCH 30.5 pg (25.0-35.0); MCHC 31.6 g/dL (31.0-37.0); Monocytes # (A) 0.7 k/uL (0-1.0); Monocytes % (A) 6 %; Neutrophils # (A) 7.6 k/uL (1.3-7.7); Neutrophils % (A) 65 %; Platelet Count 350 k/uL (150-450); RBC 3.59 m/uL (3.80-5.40); RDW 18.3 % (11.5-15.5); WBC 11.7 k/uL (3.8-10.6)
[2021-09-26 16:05] LABS: Amphetamine Screen,Urine Not Detected (NotDetected); Barbiturate Screen,Urine Not Detected (NotDetected); Benzodiazepines Screen,Urine Detected (NotDetected); Cocaine Screen,Urine Not Detected (NotDetected); Methadone Screen, Urine Not Detected (NotDetected); Opiate Screen,Urine Detected (NotDetected); Oxycodone Screen, Urine Detected (NotDetected); Phencyclidine Screen,Urine Not Detected (NotDetected); Tricyclic Antidepressant,Urine Detected (NotDetected); Urn Cannabinoid Scrn Not Detected (NotDetected)
[2021-09-26 16:10] LABS: MCV 96.7 fL (80.0-100.0)
[2021-09-26 16:12] LABS: ALT 28 U/L (4-34); AST 49 U/L (14-36); African American GFR (CKD) >90 (>60 ml/min/1.73 sqM); Albumin 3.5 g/dL (3.5-5.0); Alkaline Phosphatase 123 U/L (38-126); Anion Gap 5 mmol/L; Blood Urea Nitrogen 21 mg/dL (7-17); Calcium 9.1 mg/dL (8.4-10.2); Carbon Dioxide 28 mmol/L (22-30); Chloride 98 mmol/L (98-107); Glucose 108 mg/dL (74-99); Non-African American GFR(CKD) >90 (>60 ml/min/1.73 sqM); Potassium 4.4 mmol/L (3.5-5.1); Sodium 131 mmol/L (137-145); Total Bilirubin 0.3 mg/dL (0.2-1.3); Total Protein 6.4 g/dL (6.3-8.2)
--- NOTE | 2021-09-26 16:28 | XR ---
EXAMINATION TYPE: XR chest 2V DATE OF EXAM: 09/26/2021 COMPARISON: Chest radiograph 08/06/2021 HISTORY: Difficulty breathing TECHNIQUE: Frontal and lateral views of the chest are obtained. FINDINGS: There is no focal air space opacity, pleural effusion, or pneumothorax seen. The cardiac silhouette size is within normal limits. The osseous structures are intact. IMPRESSION: No acute cardiopulmonary process.
== END 2021-09-26 17:10 | disposition left against medical advice (07) ==
LOC: EC 15:14
DX: R53.1 Weakness (principal); F41.9 Anxiety disorder, unspecified; J44.9 Chronic obstructive pulmonary disease, unspecified; F12.90 Cannabis use, unspecified, uncomplicated; Z87.891 Personal history of nicotine dependence
CPT/HCPCS: 99285; 96374; 96375; 36415; 80053; 85025; 80306; 71046; J2060; J1885

== ENCOUNTER 2021-11-01 13:26 | Observation (INO) | payer OTHER ==
[2021-11-01] MEDS ORDERED: IPRATROPIUM 0.5 MG/2.5 ML NEBU INHALATION STA (13:52)
[2021-11-01] MEDS ORDERED: ALBUTEROL NEBULIZED 2.5 MG/3 ML INHALATION STA (13:52)
[2021-11-01] MEDS ORDERED: methylPREDNISolone SOD SUCCI 125 MG/2 ML VIAL IV STA (13:52)
--- NOTE | 2021-11-01 14:09 | ED ---
General Adult HPI - General Chief complaint: Shortness of Breath Stated complaint: SOB,Dizzy Time Seen by Provider: 11/01/21 13:40 Source: patient, RN notes reviewed, old records reviewed Mode of arrival: ambulatory Limitations: no limitations - History of Present Illness Initial comments: This is a 41-year-old female with past medical history significant for COPD and anemia. Patient states she's normally on oxygen at home. Patient came in today because she is feeling weak and she states is been ongoing for the last 2 weeks. Patient states occasionally she gets so weak she is slowly goes to the ground. Patient denies any injury but she feels like she can't stand up any further. Patient states she was supposed to see her primary medical care doctor but felt too weak to get there this morning so she came to the emergency department. Patient also has noted that she's been somewhat short of breath lately. Patient denies any cough. Patient denies any chest pain or palpitations. Patient denies abdominal pain patient denies nausea vomiting diarrhea. Patient denies any swelling to the legs or calf tenderness. Patient states she has been having some diarrhea and she states is very dark in color. - Related Data Home Medications Medication Instructions Recorded Confirmed ALPRAZolam [Xanax] 1 mg PO TID PRN 10/03/17 09/26/21 Albuterol Nebulized [Ventolin 2.5 mg INHALATION RT-QID PRN 08/06/21 09/26/21 Nebulized] Albuterol Sulfate [Ventolin HFA] 1 - 2 puff INHALATION RT-Q4H PRN 08/06/2109/14 Cyclobenzaprine [Flexeril] 10 mg PO HS 08/06/21 09/26/21 FLUoxetine HCL [PROzac] 10 mg PO DAILY 09/26/21 09/26/21 Furosemide [Lasix] 20 mg PO BID 09/26/21 09/26/21 HYDROcodone/APAP 10-325MG [[place] 1 tab PO Q6H PRN 09/26/21 09/26/21 10-325] Iron(Unknown Dose) 1 tab PO TID 09/26/21 09/26/21 QUEtiapine [SEROquel] 100 mg PO HS 09/26/21 09/26/21 predniSONE [Deltasone] 20 mg PO BID 09/26/21 09/26/21 Allergies Allergy/AdvReac Type Severity Reaction Status Date / Time fentanyl AdvReac Hallucinati Verified 11/01/21 13:36 ons Review of Systems ROS Statement: Those systems with pertinent positive or pertinent negative responses have been documented in the HPI. ROS Other: All systems not noted in ROS Statement are negative. Past Medical History Past Medical History: COPD Additional Past Medical History / Comment(s): chiari type 1 malformation, anemia History of Any Multi-Drug Resistant Organisms: None Reported Past Surgical History: Back Surgery Additional Past Surgical History / Comment(s): lumbar fusion surgery Past Psychological History: Anxiety Smoking Status: Former smoker Past Alcohol Use History: Occasional Past Drug Use History: Heroin, Marijuana, Opiates General Exam - General Exam Comments Initial Comments: GENERAL: Patient is well-developed and well-nourished. Patient is nontoxic and well- hydrated and is in mild distress. ENT: Neck is soft and supple. No significant lymphadenopathy is noted. Oropharynx is clear. Moist mucous membranes. Neck has full range of motion without eliciting any pain. EYES: The sclera were anicteric and conjunctiva were pink and moist. Extraocular movements were intact and pupils were equal round and reactive to light. Eyelids were unremarkable. PULMONARY: Unlabored respirations. Good breath sounds bilaterally. Patient is wheezing diffusely CARDIOVASCULAR: There is a regular rate and rhythm without any murmurs gallops or rubs. ABDOMEN: Soft and nontender with normal bowel sounds. SKIN: Skin is clear with no lesions or rashes and otherwise unremarkable. NEUROLOGIC: Patient is alert and oriented x3. Cranial nerves II through XII are grossly intact. Motor and sensory are also intact. Normal speech, volume and content. Symmetrical smile. MUSCULOSKELETAL: Normal extremities with adequate strength and full range of motion. No lower extremity swelling or edema. No calf tenderness. LYMPHATICS: No significant lymphadenopathy is noted PSYCHIATRIC: Normal psychiatric evaluation. Limitations: no limitations Course Vital Signs 11/01/21 11/01/21 11/01/21 13:28 14:30 14:54 Temperature 98.6 F Pulse Rate 112 H 95 90 Respiratory 22 20 Rate Blood Pressure 131/66 132/60 O2 Sat by Pulse 100 100 Oximetry 11/01/21 15:03 Temperature Pulse Rate 93 Respiratory Rate Blood Pressure O2 Sat by Pulse Oximetry Medical Decision Making - Medical Decision Making EKG shows sinus rhythm at 90 bpm IN interval 127 QRS is 82 QT intervals 51 QTC is 47. Patient's EKG shows no ST segment elevation or depression Patient's hemoglobin is 4.9. I ordered 2 units of blood. Chest x-ray shows no acute abnormality I spoke with Dr. Sims and he agreed to admit the patient admitted the patient and he wanted Dr. Solorzanoed consult. - Lab Data Result diagrams: 11/01/21 14:19 11/01/21 14:19 Lab Results 11/01/21 11/01/21 11/01/21 Range/Units 14:18 14:19 14:19 WBC 8.2 (3.8-10.6) k/uL RBC 1.96 L (3.80-5.40) m/uL Hgb 4.9 L* D (11.4-16.0) gm/dL Hct 17.5 L* (34.0-46.0) % MCV 89.6 D (80.0-100.0) fL MCH 24.8 L (25.0-35.0) pg MCHC 27.7 L (31.0-37.0) g/dL RDW 21.5 H (11.5-15.5) % Plt Count 393 (150-450) k/uL MPV 8.2 Neutrophils % 62 % Lymphocytes % 24 % Monocytes % 8 % Eosinophils % 3 % Basophils % 0 % Neutrophils # 5.1 (1.3-7.7) k/uL Lymphocytes # 2.0 (1.0-4.8) k/uL Monocytes # 0.6 (0-1.0) k/uL Eosinophils # 0.3 (0-0.7) k/uL Basophils # 0.0 (0-0.2) k/uL Hypochromasia Marked Poikilocytosis Moderate Anisocytosis Moderate Microcytosis Slight Sodium 137 (137-145) mmol/L Potassium 4.0 (3.5-5.1) mmol/L Chloride 103 (98-107) mmol/L Carbon Dioxide 32 H (22-30) mmol/L Anion Gap 2 mmol/L BUN 6 L (7-17) mg/dL Creatinine 0.48 L (0.52-1.04) mg/dL Est GFR (CKD-EPI)AfAm >90 (>60 ml/min/1.73 sqM) Est GFR (CKD-EPI)NonAf >90 (>60 ml/min/1.73 sqM) Glucose 78 (74-99) mg/dL Plasma Lactic Acid Jimi (0.7-2.0) mmol/L Calcium 8.3 L (8.4-10.2) mg/dL Magnesium 2.0 (1.6-2.3) mg/dL Total Bilirubin 0.3 (0.2-1.3) mg/dL AST 16 (14-36) U/L ALT 14 (4-34) U/L Alkaline Phosphatase 64 (38-126) U/L Troponin I (0.000-0.034) ng/mL Total Protein 5.6 L (6.3-8.2) g/dL Albumin 3.0 L (3.5-5.0) g/dL Influenza Type A RNA Not Detected (Not Detectd) Influenza Type B (PCR) Not Detected (Not Detectd) Blood Type Blood Type Recheck Bld Type Recheck Status Antibody Screen Crossmatch Spec Expiration Date 11/01/21 11/01/21 11/01/21 Range/Units 14:19 14:19 15:05 WBC (3.8-10.6) k/uL RBC (3.80-5.40) m/uL Hgb (11.4-16.0) gm/dL Hct (34.0-46.0) % MCV (80.0-100.0) fL MCH (25.0-35.0) pg MCHC (31.0-37.0) g/dL RDW (11.5-15.5) % Plt Count (150-450) k/uL MPV Neutrophils % % Lymphocytes % % Monocytes % % Eosinophils % % Basophils % % Neutrophils # (1.3-7.7) k/uL Lymphocytes # (1.0-4.8) k/uL Monocytes # (0-1.0) k/uL Eosinophils # (0-0.7) k/uL Basophils # (0-0.2) k/uL Hypochromasia Poikilocytosis Anisocytosis Microcytosis Sodium (137-145) mmol/L Potassium (3.5-5.1) mmol/L Chloride (98-107) mmol/L Carbon Dioxide (22-30) mmol/L Anion Gap mmol/L BUN (7-17) mg/dL Creatinine (0.52-1.04) mg/dL Est GFR (CKD-EPI)AfAm (>60 ml/min/1.73 sqM) Est GFR (CKD-EPI)NonAf (>60 ml/min/1.73 sqM) Glucose (74-99) mg/dL Plasma Lactic Acid Jimi 2.6 H* (0.7-2.0) mmol/L Calcium (8.4-10.2) mg/dL Magnesium (1.6-2.3) mg/dL Total Bilirubin (0.2-1.3) mg/dL AST (14-36) U/L ALT (4-34) U/L Alkaline Phosphatase (38-126) U/L Troponin I 0.127 H* (0.000-0.034) ng/mL Total Protein (6.3-8.2) g/dL Albumin (3.5-5.0) g/dL Influenza Type A RNA (Not Detectd) Influenza Type B (PCR) (Not Detectd) Blood Type O Positive Blood Type Recheck O Pos Bld Type Recheck Status No Antibody Screen NEGATIVE Crossmatch See Detail Spec Expiration Date 11/04/20212304 Critical Care Time Critical Care Time: Yes Total Critical Care Time: 35 Disposition Clinical Impression: Anemia, COPD exacerbation Disposition: ADMITTED IP TO THIS HOSP Referrals: Domenico Xie MD [Primary Care Provider] - 1-2 days Time of Disposition: 16:15
[2021-11-01 14:36] LABS: Anisocytosis Moderate; Basophils % (A) 0 %; Eosinophils # (A) 0.3 k/uL (0-0.7); Eosinophils % (A) 3 %; Hypochromasia Marked; Lymphocytes % (A) 24 %; MCH 24.8 pg (25.0-35.0); MCHC 27.7 g/dL (31.0-37.0); MCV 89.6 fL (80.0-100.0); Mean Platelet Volume 8.2; Microcytosis Slight; Monocytes # (A) 0.6 k/uL (0-1.0); Monocytes % (A) 8 %; Neutrophils # (A) 5.1 k/uL (1.3-7.7); Neutrophils % (A) 62 %; Platelet Count 393 k/uL (150-450); Poikilocytosis Moderate; RBC 1.96 m/uL (3.80-5.40); RDW 21.5 % (11.5-15.5); WBC 8.2 k/uL (3.8-10.6)
[2021-11-01 14:42] LABS: HCT 17.5 % (34.0-46.0); HGB 4.9 gm/dL (11.4-16.0)
[2021-11-01 14:52] LABS: ALT 14 U/L (4-34); AST 16 U/L (14-36); African American GFR (CKD) >90 (>60 ml/min/1.73 sqM); Alkaline Phosphatase 64 U/L (38-126); Anion Gap 2 mmol/L; Blood Urea Nitrogen 6 mg/dL (7-17); Calcium 8.3 mg/dL (8.4-10.2); Carbon Dioxide 32 mmol/L (22-30); Chloride 103 mmol/L (98-107); Glucose 78 mg/dL (74-99); Non-African American GFR(CKD) >90 (>60 ml/min/1.73 sqM); Sodium 137 mmol/L (137-145); Total Bilirubin 0.3 mg/dL (0.2-1.3); Total Protein 5.6 g/dL (6.3-8.2)
[2021-11-01] MEDS ORDERED: ACETAMINOPHEN TAB 325 MG TAB PO STA (15:07)
--- NOTE | 2021-11-01 15:20 | XR ---
EXAMINATION TYPE: XR chest 2V DATE OF EXAM: 11/01/2021 COMPARISON: Chest x-ray September 26, 2021 HISTORY: Syncope. Worsening shortness of breath TECHNIQUE: Frontal and lateral views of the chest are obtained. FINDINGS: There is chronic parenchymal changes bilaterally without suspicious focal air space opacit y, pleural effusion, or pneumothorax seen. The cardiac silhouette size is within normal limits. Unde rlying scoliotic curvature is present. IMPRESSION: Chronic parenchymal changes without acute pulmonary process.
[2021-11-01] MEDS ORDERED: SODIUM CHLORIDE 0.9% 1,000 ML IV ONE (16:16)
[2021-11-01] MEDS ORDERED: ALPRAZolam 0.25 MG TAB PO STA (22:06)
[2021-11-02] MEDS: methylPREDNISolone SOD SUCCI 125 MG/2 ML VIAL IV SCH ×5 (01:54→23:37)
[2021-11-02 04:01] LABS: Anisocytosis Slight; Basophils % (A) 0 %; Eosinophils % (A) 0 %; HCT 25.4 % (34.0-46.0); Hypochromasia Marked; Lymphocytes # (A) 0.8 k/uL (1.0-4.8); Lymphocytes % (A) 11 %; MCH 27.5 pg (25.0-35.0); MCHC 30.3 g/dL (31.0-37.0); MCV 90.8 fL (80.0-100.0); Mean Platelet Volume 6.6; Monocytes # (A) 0.1 k/uL (0-1.0); Monocytes % (A) 2 %; Neutrophils # (A) 6.5 k/uL (1.3-7.7); Neutrophils % (A) 87 %; Platelet Count 336 k/uL (150-450); Poikilocytosis Marked; RDW 19.2 % (11.5-15.5); WBC 7.5 k/uL (3.8-10.6)
[2021-11-02 04:05] LABS: HGB 7.7 gm/dL (11.4-16.0)
[2021-11-02] MEDS: ALBUTEROL NEBULIZED 2.5 MG/3 ML INHALATION SCH ×5 (07:52→21:49)
--- NOTE | 2021-11-02 12:47 | P.GSCN ---
History of Present Illness Consult date: 11/02/21 History of present illness: CHIEF COMPLAINT: Weakness Reason for consult anemia HISTORY OF PRESENT ILLNESS: This is a 41-year-old female who presented to the hospital with complaints of weakness and shortness of breath. She was found to have COPD exacerbation and started on IV steroids and nebulizer treatments. Patient also was found to be anemic. Hemoglobin was 4.9. She received 2 units of blood hemoglobin has come up to 7.7. She denies any blood in her stools or black stools. Denies abdominal pain. Denies any nausea or vomiting. Her last EGD and colonoscopy was in 08/09/[address] syed which did show erosive esophagitis, small hiatal hernia and a normal colonoscopy. And at that time she had been hospitalized with anemia as well. Patient reports that her stools have been green in color. Patient reports that she had been taking her PPI however, she ran out of it for the last 5 days. She does report some difficulty with swallowing both solid and liquids at times. Denies any NSAID use or blood thinners. PAST MEDICAL HISTORY: COPD, chiari type 1 malformation PAST SURGICAL HISTORY: See list. MEDICATIONS: See list. ALLERGIES: See list. SOCIAL HISTORY: No illicit drug use. REVIEW OF SYSTEMS: CONSTITUTIONAL: Denies fever or chills. HEENT: Denies blurred vision, vision changes, or eye pain. Denies hemoptysis CARDIOVASCULAR: Denies chest pain or pressure. RESPIRATORY: No shortness of breath. GASTROINTESTINAL: See HPI for pertinent findings HEMATOLOGIC: Denies bleeding disorders. GENITOURINARY: Denies any blood in urine or increased urinary frequency. SKIN: Denies pruitis. Denies rash. PHYSICAL EXAM: VITAL SIGNS: Reviewed GENERAL: Well-developed in no acute distress. HEENT: No sclera icterus. Extraocular movements grossly intact. Moist buccal mucosa. Head is atraumatic, normocephalic. No nasal drainage. ABDOMEN: Soft. Nondistended. Nontender II through XII grossly intact. LABORATORY DATA: WBC 7.5 hemoglobin 4.9 up to 7.7 platelets 336 Na 137 potassium is 4.4 creatinine 0.48 lactic acid 3.6 down to 1.2 Troponin 0.127, 0.103 and 0.099 IMAGING: ASSESSMENT: 1. Anemia 2. EGD and colonoscopy in July 2021 revealing erosive esophagitis, small hiatal hernia and normal colonoscopy PLAN: -Patient scheduled for EGD and colonoscopy on 11/04/2021 -Start clear liquid diet -Start GoLYTELY prep tomorrow morning -Start Protonix 40 mg IV daily -Continue to monitor hemoglobin Thank you for this consultation Physician Analyst [employer] note has been reviewed by physician. Signing provider agrees with the documented findings, assessment, and plan of care. Past Medical History Past Medical History: COPD Additional Past Medical History / Comment(s): chiari type 1 malformation, anemia History of Any Multi-Drug Resistant Organisms: None Reported Past Surgical History: Back Surgery Additional Past Surgical History / Comment(s): lumbar fusion surgery Past Psychological History: Anxiety Smoking Status: Former smoker Past Alcohol Use History: Occasional Additional Past Alcohol Use History / Comment(s): drinks alcohol occasionally, says a couple times a year. Says she smokes a few cigarettes a week when stressed. Past Drug Use History: Heroin, Marijuana, Opiates Additional Drug Use History / Comment(s): patient reports using heroin a year ago but none since then. Medications and Allergies Home Medications Medication Instructions Recorded Confirmed Type ALPRAZolam [Xanax] 1 mg PO TID PRN 10/03/17 11/01/21 History Albuterol Nebulized [Ventolin 2.5 mg INHALATION RT-QID PRN 08/06/21 11/01/21 History Nebulized] Albuterol Sulfate [Ventolin HFA] 1 - 2 puff INHALATION RT-Q4H PRN 08/06/21 11/01/21 History Cyclobenzaprine [Flexeril] 10 mg PO HS 08/06/21 11/01/21 History FLUoxetine HCL [PROzac] 10 mg PO DAILY 09/26/21 11/01/21 History Furosemide [Lasix] 20 mg PO BID PRN 09/26/21 11/01/21 History HYDROcodone/APAP 10-325MG [[place] 1 tab PO Q6H PRN 09/26/21 11/01/21 History 10-325] QUEtiapine [SEROquel] 100 mg PO HS 09/26/21 11/01/21 History predniSONE [Deltasone] 20 mg PO DAILY 09/26/21 11/01/21 History Pantoprazole [Protonix] 40 mg PO DAILY 11/01/21 11/01/21 History predniSONE [Deltasone] 20 mg PO HS PRN 11/01/21 11/01/21 History Allergies Allergy/AdvReac Type Severity Reaction Status Date / Time fentanyl AdvReac Hallucinati Verified 11/01/21 17:28 ons Surgical - Exam Vital Signs Temp Pulse Resp BP Pulse Ox 98.6 F 112 H 22 131/66 100 11/01/21 13:28 11/01/21 13:28 11/01/21 13:28 11/01/21 13:28 11/01/21 13:28 Results - Labs 11/02/21 03:01 11/01/21 14:19 Abnormal Lab Results - Last 24 Hours (Table) 11/01/21 11/01/21 11/01/21 Range/Units 14:19 14:19 14:19 RBC 1.96 L (3.80-5.40) m/uL Hgb 4.9 L* D (11.4-16.0) gm/dL Hct 17.5 L* (34.0-46.0) % MCH 24.8 L (25.0-35.0) pg MCHC 27.7 L (31.0-37.0) g/dL RDW 21.5 H (11.5-15.5) % Lymphocytes # (1.0-4.8) k/uL Carbon Dioxide 32 H (22-30) mmol/L BUN 6 L (7-17) mg/dL Creatinine 0.48 L (0.52-1.04) mg/dL Plasma Lactic Acid Jimi 2.6 H* (0.7-2.0) mmol/L Calcium 8.3 L (8.4-10.2) mg/dL Creatine Kinase (30-135) U/L Troponin I (0.000-0.034) ng/mL Total Protein 5.6 L (6.3-8.2) g/dL Albumin 3.0 L (3.5-5.0) g/dL Crossmatch 11/01/21 11/01/21 11/01/21 Range/Units 14:19 15:05 20:39 RBC (3.80-5.40) m/uL Hgb (11.4-16.0) gm/dL Hct (34.0-46.0) % MCH (25.0-35.0) pg MCHC (31.0-37.0) g/dL RDW (11.5-15.5) % Lymphocytes # (1.0-4.8) k/uL Carbon Dioxide (22-30) mmol/L BUN (7-17) mg/dL Creatinine (0.52-1.04) mg/dL Plasma Lactic Acid Jimi 3.6 H* (0.7-2.0) mmol/L Calcium (8.4-10.2) mg/dL Creatine Kinase (30-135) U/L Troponin I 0.127 H* (0.000-0.034) ng/mL Total Protein (6.3-8.2) g/dL Albumin (3.5-5.0) g/dL Crossmatch See Detail 11/01/21 11/01/21 11/02/21 Range/Units 20:39 20:39 03:01 RBC (3.80-5.40) m/uL Hgb (11.4-16.0) gm/dL Hct (34.0-46.0) % MCH (25.0-35.0) pg MCHC (31.0-37.0) g/dL RDW (11.5-15.5) % Lymphocytes # (1.0-4.8) k/uL Carbon Dioxide (22-30) mmol/L BUN (7-17) mg/dL Creatinine (0.52-1.04) mg/dL Plasma Lactic Acid Jimi (0.7-2.0) mmol/L Calcium (8.4-10.2) mg/dL Creatine Kinase 24 L (30-135) U/L Troponin I 0.103 H* 0.099 H* (0.000-0.034) ng/mL Total Protein (6.3-8.2) g/dL Albumin (3.5-5.0) g/dL Crossmatch 11/02/21 Range/Units 03:01 RBC 2.80 L (3.80-5.40) m/uL Hgb 7.7 L D (11.4-16.0) gm/dL Hct 25.4 L (34.0-46.0) % MCH (25.0-35.0) pg MCHC 30.3 L (31.0-37.0) g/dL RDW 19.2 H (11.5-15.5) % Lymphocytes # 0.8 L (1.0-4.8) k/uL Carbon Dioxide (22-30) mmol/L BUN (7-17) mg/dL Creatinine (0.52-1.04) mg/dL Plasma Lactic Acid Jimi (0.7-2.0) mmol/L Calcium (8.4-10.2) mg/dL Creatine Kinase (30-135) U/L Troponin I (0.000-0.034) ng/mL Total Protein (6.3-8.2) g/dL Albumin (3.5-5.0) g/dL Crossmatch Diabetes panel 11/01/21 Range/Units 14:19 Sodium 137 (137-145) mmol/L Potassium 4.0 (3.5-5.1) mmol/L Chloride 103 (98-107) mmol/L Carbon Dioxide 32 H (22-30) mmol/L BUN 6 L (7-17) mg/dL Creatinine 0.48 L (0.52-1.04) mg/dL Glucose 78 (74-99) mg/dL Calcium 8.3 L (8.4-10.2) mg/dL AST 16 (14-36) U/L ALT 14 (4-34) U/L Alkaline Phosphatase 64 (38-126) U/L Total Protein 5.6 L (6.3-8.2) g/dL Albumin 3.0 L (3.5-5.0) g/dL Calcium panel 11/01/21 Range/Units 14:19 Calcium 8.3 L (8.4-10.2) mg/dL Albumin 3.0 L (3.5-5.0) g/dL Pituitary panel 11/01/21 Range/Units 14:19 Sodium 137 (137-145) mmol/L Potassium 4.0 (3.5-5.1) mmol/L Chloride 103 (98-107) mmol/L Carbon Dioxide 32 H (22-30) mmol/L BUN 6 L (7-17) mg/dL Creatinine 0.48 L (0.52-1.04) mg/dL Glucose 78 (74-99) mg/dL Calcium 8.3 L (8.4-10.2) mg/dL Adrenal panel 11/01/21 Range/Units 14:19 Sodium 137 (137-145) mmol/L Potassium 4.0 (3.5-5.1) mmol/L Chloride 103 (98-107) mmol/L Carbon Dioxide 32 H (22-30) mmol/L BUN 6 L (7-17) mg/dL Creatinine 0.48 L (0.52-1.04) mg/dL Glucose 78 (74-99) mg/dL Calcium 8.3 L (8.4-10.2) mg/dL Total Bilirubin 0.3 (0.2-1.3) mg/dL AST 16 (14-36) U/L ALT 14 (4-34) U/L Alkaline Phosphatase 64 (38-126) U/L Total Protein 5.6 L (6.3-8.2) g/dL Albumin 3.0 L (3.5-5.0) g/dL
[2021-11-02] MEDS: ACETAMINOPHEN TAB 325 MG TAB PO PRN (14:12)
[2021-11-02] MEDS: PANTOPRAZOLE 40 MG/10 ML VIAL IVP SCH (14:17)
[2021-11-02] MEDS: ALPRAZolam 1 MG TAB PO PRN (15:26)
[2021-11-02] MEDS: FLUoxetine HCL 10 MG CAP PO SCH (15:26)
[2021-11-02] MEDS: CYCLOBENZAPRINE 10 MG TAB PO SCH (21:03)
[2021-11-02] MEDS: QUEtiapine 100 MG TAB PO SCH (21:03)
[2021-11-02 21:16] LABS: Glucose,Whole Blood 149 mg/dL (75-99)
[2021-11-02] MEDS ORDERED: HYDROcodone/APAP 10-325MG 1 EACH TAB PO ONE (22:50)
[2021-11-03] MEDS: methylPREDNISolone SOD SUCCI 125 MG/2 ML VIAL IV SCH ×3 (05:58→17:05)
[2021-11-03 06:10] LABS: Glucose,Whole Blood 163 mg/dL (75-99)
[2021-11-03 07:25] LABS: Anisocytosis Slight; HCT 25.7 % (34.0-46.0); HGB 7.5 gm/dL (11.4-16.0); Hypochromasia Marked; MCH 27.1 pg (25.0-35.0); MCHC 29.2 g/dL (31.0-37.0); MCV 92.9 fL (80.0-100.0); Mean Platelet Volume 7.4; Platelet Count 294 k/uL (150-450); Poikilocytosis Marked; RBC 2.77 m/uL (3.80-5.40); RDW 19.3 % (11.5-15.5); WBC 11.9 k/uL (3.8-10.6)
[2021-11-03 07:42] LABS: African American GFR (CKD) >90 (>60 ml/min/1.73 sqM); Anion Gap 11 mmol/L; Blood Urea Nitrogen 11 mg/dL (7-17); Calcium 8.9 mg/dL (8.4-10.2); Carbon Dioxide 25 mmol/L (22-30); Chloride 105 mmol/L (98-107); Glucose 130 mg/dL (74-99); Non-African American GFR(CKD) >90 (>60 ml/min/1.73 sqM); Sodium 141 mmol/L (137-145)
[2021-11-03] MEDS: ALBUTEROL NEBULIZED 2.5 MG/3 ML INHALATION SCH ×4 (08:23→20:59)
[2021-11-03] MEDS ORDERED: PEG 3350-NA SULF,BICARB,CL/KCL 4,000 ML BOTTLE PO ONE (09:00)
[2021-11-03] MEDS: PANTOPRAZOLE 40 MG/10 ML VIAL IVP SCH (09:23)
[2021-11-03] MEDS: FLUoxetine HCL 10 MG CAP PO SCH (09:23)
[2021-11-03] MEDS: ALPRAZolam 1 MG TAB PO PRN ×2 (09:34→17:08)
[2021-11-03 12:17] LABS: Glucose,Whole Blood 163 mg/dL (75-99)
--- NOTE | 2021-11-03 13:39 | P.PN ---
Subjective Progress Note Date: 11/03/21 CHIEF COMPLAINT: Anemia HISTORY OF PRESENT ILLNESS: Patient had a hemoglobin of 4.9 admission received a total of 2 units of blood. Hemoglobin today is down from 7.7-7.5. Patient denies any blood in her stools or black stools. Patient reports that her breathing is better today. Denies any abdominal pain. Afebrile. WBC is 11.9 hgb7.5 sodium 141 potassium 4.0 creatinine 0.51 PHYSICAL EXAM: VITAL SIGNS: Reviewed. GENERAL: Well-developed in no acute distress. HEENT: No sclera icterus. Extraocular movements grossly intact. Moist buccal mucosa. Head is atraumatic, normocephalic. ABDOMEN: Soft. Nondistended. Nontender. NEUROLOGIC: Alert and oriented. Cranial nerves II through XII grossly intact. ASSESSMENT: 1. Anemia 2. EGD and colonoscopy in July 2021 revealing erosive esophagitis, small hiatal hernia and normal colonoscopy PLAN: -Patient scheduled for EGD and colonoscopy on 11/04/2021 -Continue clear liquid diet -Start GoLYTELY prep this morning -Nothing by mouth after midnight -Continue PPI -Continue to monitor hemoglobin Physician Ceramic [employer] note has been reviewed by physician. Signing provider agrees with the documented findings, assessment, and plan of care. Objective - Vital Signs Vital signs: Vital Signs Temp 98.7 F 11/03/21 08:00 Pulse 94 11/03/21 12:32 Resp 18 11/03/21 08:00 BP 136/78 11/03/21 08:00 Pulse Ox 96 11/03/21 08:00 Intake & Output 11/02/21 11/03/21 11/03/21 18:59 06:59 18:59 Output Total 375 Balance -375 Output: Urine 375 Other: # Voids 1 - Labs CBC & Chem 7: 11/03/21 06:03 11/03/21 06:03 Labs: Abnormal Lab Results - Last 24 Hours (Table) 11/02/21 11/03/21 11/03/21 Range/Units 21:11 06:00 06:03 WBC 11.9 H (3.8-10.6) k/uL RBC 2.77 L (3.80-5.40) m/uL Hgb 7.5 L (11.4-16.0) gm/dL Hct 25.7 L (34.0-46.0) % MCHC 29.2 L (31.0-37.0) g/dL RDW 19.3 H (11.5-15.5) % Creatinine (0.52-1.04) mg/dL Glucose (74-99) mg/dL POC Glucose (mg/dL) 149 H 163 H (75-99) mg/dL 11/03/21 11/03/21 Range/Units 06:03 11:41 WBC (3.8-10.6) k/uL RBC (3.80-5.40) m/uL Hgb (11.4-16.0) gm/dL Hct (34.0-46.0) % MCHC (31.0-37.0) g/dL RDW (11.5-15.5) % Creatinine 0.51 L (0.52-1.04) mg/dL Glucose 130 H (74-99) mg/dL POC Glucose (mg/dL) 163 H (75-99) mg/dL
[2021-11-03 16:52] LABS: Glucose,Whole Blood 116 mg/dL (75-99)
[2021-11-03] MEDS: ACETAMINOPHEN TAB 325 MG TAB PO PRN (17:10)
[2021-11-03 20:01] LABS: Glucose,Whole Blood 131 mg/dL (75-99)
[2021-11-03] MEDS: QUEtiapine 100 MG TAB PO SCH (20:58)
[2021-11-03] MEDS: CYCLOBENZAPRINE 10 MG TAB PO SCH (20:58)
[2021-11-04] MEDS: methylPREDNISolone SOD SUCCI 125 MG/2 ML VIAL IV SCH ×3 (00:02→12:38)
[2021-11-04] MEDS ORDERED: LACTATED RINGERS 1,000 ML IV SCH (01:22)
[2021-11-04] MEDS: ALPRAZolam 1 MG TAB PO PRN ×2 (01:35→08:47)
[2021-11-04 06:13] LABS: Anisocytosis Slight; HCT 25.5 % (34.0-46.0); HGB 7.3 gm/dL (11.4-16.0); Hypochromasia Marked; MCH 26.4 pg (25.0-35.0); MCHC 28.7 g/dL (31.0-37.0); Mean Platelet Volume 7.8; Platelet Count 269 k/uL (150-450); Poikilocytosis Marked; RBC 2.78 m/uL (3.80-5.40); RDW 19.5 % (11.5-15.5); WBC 11.1 k/uL (3.8-10.6)
[2021-11-04 06:51] LABS: Glucose,Whole Blood 134 mg/dL (75-99)
[2021-11-04 07:01] LABS: African American GFR (CKD) >90 (>60 ml/min/1.73 sqM); Anion Gap 5 mmol/L; Blood Urea Nitrogen 9 mg/dL (7-17); Calcium 8.8 mg/dL (8.4-10.2); Carbon Dioxide 31 mmol/L (22-30); Chloride 104 mmol/L (98-107); Glucose 122 mg/dL (74-99); Non-African American GFR(CKD) >90 (>60 ml/min/1.73 sqM); Potassium 3.4 mmol/L (3.5-5.1); Sodium 140 mmol/L (137-145)
[2021-11-04] MEDS ORDERED: POTASSIUM CHLORIDE ER 20 MEQ TAB.ER PO STA (07:58)
[2021-11-04] MEDS: FLUoxetine HCL 10 MG CAP PO SCH (08:21)
[2021-11-04] MEDS: ALBUTEROL NEBULIZED 2.5 MG/3 ML INHALATION SCH ×3 (08:31→15:27)
[2021-11-04] MEDS: PANTOPRAZOLE 40 MG/10 ML VIAL IVP SCH (08:48)
[2021-11-04] MEDS ORDERED: PROPOFOL 10 MG/ML 20 ML VIAL IV ONE (11:47)
[2021-11-04] MEDS ORDERED: MIDAZOLAM 2 MG/2 ML VIAL ONE (11:47)
[2021-11-04] MEDS ORDERED: IV FLUID CONTINUATION 1,000 ML IV ONE (11:48)
--- NOTE | 2021-11-04 12:07 | P.OP ---
Date of Procedure: 11/04/21 Preoperative Diagnosis: Anemia GI bleed Postoperative Diagnosis: Esophagitis Sliding hiatal hernia Normal colon Procedure(s) Performed: EGD Colonoscopy Anesthesia: MAC Surgeon: Willy Quan Pathology: other (Esophagus) Condition: stable Disposition: PACU Description of Procedure: The patient was placed on the endoscopy table lateral position. She received IV sedation. The gastro-/oropharynx passed in the esophagus into the stomach. Scope was then placed through the pylorus. The first and second portion of the duodenum appeared normal. Scope was brought back the antrum there is some minimal antral gastritis. Scope was unretroflexed and remainder of the stomach appeared normal. There was a small sliding hiatal hernia. The GE junction was at 40 cm. The distal esophagus appeared inflamed. A biopsies performed. The scope was then brought back and the proximal esophagus appeared normal. Scope withdrawn for patient. Next digital rectal exam was performed. This revealed no abnormalities. Flexible colonoscope was then placed patient anus and passed throughout the entire colon. Ileocecal valve was visualized. The cecum appeared normal. The ascending colon, transverse colon and descending colon appeared normal. The sigmoid colon was normal. Scope was brought back the rectum this appeared normal. Scope withdrawn for patient. There was no evidence of any GI bleed. His mood patient may have had anemia related to esophagitis.
[2021-11-04 12:29] LABS: Glucose,Whole Blood 113 mg/dL (75-99)
[2021-11-04] MEDS ORDERED: FUROSEMIDE 20 MG TAB PO PRN (12:52)
[2021-11-04 13:51] VITALS: RESP 18
[2021-11-04 14:38] VITALS: TEMP 98.6
[2021-11-04 14:41] VITALS: BP 137/90; PULSE 90
[2021-11-04 14:44] LABS: Appearance,Urine Cloudy (Clear); Bilirubin,Urine Negative (Negative); Blood,Urine Negative (Negative); Color,Urine Yellow; Glucose,Urine (UA) Negative (Negative); Ketones,Urine Negative (Negative); Leukocyte Esterase,Urine Negative (Negative); Mucus,Urine Many /hpf; Nitrite,Urine Negative (Negative); Protein,Urine 1+ (Negative); RBC,Urine <1 /hpf (0-5); Specific Gravity,Urine 1.031 (1.001-1.035); Squamous Epithelial Cell,Urine 9 /hpf (0-4); Urobilinogen,Urine <2.0 mg/dL (<2.0); WBC,Urine 1 /hpf (0-5)
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
--- NOTE | 2021-11-04 18:45 | PN ---
PROGRESS NOTE DATE OF SERVICE: 11/03/2021 CHIEF COMPLAINT: Anemia. HISTORY OF PRESENT ILLNESS: This lady awaits her GI consult for endoscopies. She continues to be extremely demanding of narcotics for her low back pain which is chronic. She was explained that we could treat her with mild analgesics, but while she is in the hospital for safety reasons and to avoid medication conflicts or interactions, we could not give her frequent narcotics. This is also in addition to the fact that she has been a heroin addict in the past. PHYSICAL EXAMINATION: Chest is clear and cardiac exam is normal. The abdomen is soft nontender. She is lying in bed crying. IMPRESSION: 1. Anemia. 2. Low back pain. PLAN: Await GI evaluation. MMODL / IJN: [id number] /
--- NOTE | 2021-11-04 18:45 | PN ---
PROGRESS NOTE DATE OF SERVICE: 11/02/2021 CHIEF COMPLAINT: Anemia. HISTORY OF PRESENT ILLNESS: This lady is being transfused. Request has been placed with GI for another GI evaluation. She has become quite agitated and demanding pain medications for her chronic low back pain. PHYSICAL EXAMINATION: Chest is clear. Cardiac exam is normal. The abdomen is soft and nontender. There are no masses. She is not tender over the sacrum or LS spine. IMPRESSION: 1. Profound anemia. 2. Low back pain. PLAN: 1. Await GI consult. 2. Monitor hemoglobin. MMODL / IJN: [id number] /
[2021-11-04] MEDS ORDERED: QUEtiapine 100 MG TAB PO SCH (21:00)
--- NOTE | 2021-11-04 21:45 | DS ---
DISCHARGE SUMMARY CHIEF COMPLAINT: Profound anemia, shortness of breath, and incipient congestive heart failure. HISTORY OF PRESENT ILLNESS AND PHYSICAL EXAMINATION: Details of this lady's history and physical can be found in the initial workup. LABORATORY STUDIES: While she was in the hospital, she had laboratory studies, details of which can be found in the laboratory section of her chart. COURSE IN THE HOSPITAL: After admission, she was placed on bedrest and started on intravenous fluids and transfused. Shortness of breath improved. She was referred to Gastroenterology and finally on November 04, she had endoscopy, which was reported to be normal. Throughout her hospitalization, she continued to complain bitterly about back pain and demanded narcotics. She has heroin addiction. Her back pain is chronic. She continued to press and referral was placed for pain management in Orthopedics, but then she signed out AMA. FINAL DIAGNOSES: 1. Profound anemia. 2. Shortness of breath. 3. Congestive heart failure. 4. Chronic low back pain. 5. Narcotic dependency. 6. Personality disorder. 7. Depression. OPERATIONS: Endoscopy. CONSULTATIONS: Gastroenterology. MMODL / IJN: [id number] /
[2021-11-05] MEDS ORDERED: FLUoxetine HCL 10 MG CAP PO SCH (09:00)
[2021-11-05] MEDS ORDERED: predniSONE 20 MG TAB PO SCH (09:00)
[2021-11-05] MEDS ORDERED: PANTOPRAZOLE 40 MG TABLET PO SCH (09:00)
== END 2021-11-04 15:40 | disposition left against medical advice (07) ==
LOC: EC 13:26 → INTOOBSV 16:16 → 3SCARD 16:16 → 5NMEDONC 11-02 12:42 → 3SCARD 11-02 20:15 → 4SSUR 11-04 02:51 → UNDODISIN 11-04 15:40
PROVIDERS: ADMIT Family Medicine; ATTEND Family Medicine
DX: D64.9 Anemia, unspecified (principal); I50.9 Heart failure, unspecified; G89.29 Other chronic pain; M54.50 Low back pain, unspecified; F11.20 Opioid dependence, uncomplicated; F60.9 Personality disorder, unspecified; F32.A Depression, unspecified; Z53.29 Procedure and treatment not carried out because of patient's decision for other reasons; Z91.19 Patient's noncompliance with other medical treatment and regimen; K22.10 Ulcer of esophagus without bleeding; K44.9 Diaphragmatic hernia without obstruction or gangrene; J44.1 Chronic obstructive pulmonary disease with (acute) exacerbation; T47.1X6A Underdosing of other antacids and anti-gastric-secretion drugs, initial encounter; Z91.128 Patient's intentional underdosing of medication regimen for other reason; G93.5 Compression of brain; F17.210 Nicotine dependence, cigarettes, uncomplicated; F41.9 Anxiety disorder, unspecified; D50.9 Iron deficiency anemia, unspecified; M51.36 Other intervertebral disc degeneration, lumbar region; R19.7 Diarrhea, unspecified; R45.1 Restlessness and agitation; Z88.5 Allergy status to narcotic agent; Z79.899 Other long term (current) drug therapy; Z79.52 Long term (current) use of systemic steroids; Z98.1 Arthrodesis status; Z99.81 Dependence on supplemental oxygen; Z86.718 Personal history of other venous thrombosis and embolism
CPT/HCPCS: 96376; 36430; 96361; 96374; 99291; 36415; 94640 ×5; 93005; 86900; 86901; 88305; 80053; 80048 ×2; 82550; 83605 ×2; 83735; 84484 ×2; 85025 ×2; 85027 ×2; 86850; 86920; 81001; 88312; 81025; 87502; 71046; 45378; 43239; G0378 ×6; P9016; J2250; J2930 ×4; J2704; C9113 ×3; 96375

== ENCOUNTER → 2023-02-01 | Outpatient (CLI) | payer OTHER ==
--- NOTE | 2023-02-01 08:25 | MR ---
EXAMINATION TYPE: MR lumbar spine wo con DATE OF EXAM: 02/01/2023 COMPARISON: None HISTORY: LBP, LLE radiculopathy S/P fall 2 mos ago. Hx surgery. TECHNIQUE: Multiplanar, multisequence images of the lumbar spine were acquired without IV contrast. FINDINGS: Acute/subacute fracture involving the superior and inferior endplates of the L2 vertebral body with a pproximately 40% height loss centrally with surrounding STIR signal. No retropulsion. Postsurgical ch anges from posterior fusion at L4-L5 with laminectomy changes and disc fusion cage. No paraspinal ma sses are identified. Conus medullaris has a normal appearance. T12-L1: No disc herniation or significant central canal or neural foraminal stenosis. L1-L2: Broad-based disc bulge with minimal effacement of anterior thecal sac. The neural foramen are patent bilaterally. L2-L3: Eccentric left disc bulge with minimal effacement of anterior thecal sac. Mild left neural for aminal stenosis. The right neural foramen is patent. L3-L4: Minimal broad-based disc bulge with facet arthropathy and ligamentum flavum buckling contribut e to minimal central canal stenosis. No neural foraminal stenosis. L4-L5: Postsurgical changes with disc fusion cage and laminectomy changes. No central canal or neural foraminal stenosis identified. L5-S1: No herniation, protrusion or disc bulging. No canal stenosis is present. Foramina are patent bilaterally. IMPRESSION: 1. Acute/subacute L2 vertebral body fracture involving the superior and inferior endplates without r etropulsion. There is approximately 40% height loss centrally. 2. Postsurgical changes of L4-L5 posterior fusion and laminectomy. Hardware appears intact with appr opriate alignment. 3. Minimal multilevel degenerative disc disease as described above.
== END | disposition home or self-care (01) ==
LOC: RADMRIMAIN 07:14
PROVIDERS: ATTEND Physical Medicine & Rehabilitation
DX: M51.16 Intervertebral disc disorders with radiculopathy, lumbar region (principal); S32.029A Unspecified fracture of second lumbar vertebra, initial encounter for closed fracture; Z98.1 Arthrodesis status; X58.XXXA Exposure to other specified factors, initial encounter
CPT/HCPCS: 72148

== ENCOUNTER 2024-03-22 10:44 | Emergency (ER) | payer OTHER ==
[2024-03-22 10:53] VITALS: TEMP 97.7
--- NOTE | 2024-03-22 12:42 | ED ---
General Adult HPI - General Chief complaint: GI Bleed Stated complaint: Anemia Time Seen by Provider: 03/22/24 12:10 Source: patient, RN notes reviewed, old records reviewed Mode of arrival: ambulatory Limitations: no limitations - History of Present Illness Initial comments: 44-year-old female presenting with nausea vomiting, unable to take her medicat ions for chronic pain. Patient states she had endoscopy with gastroenterology 1 week ago which was noting gastric ulcers. She states there was some blood in her vomit and she also deals with chronic anemia. - Related Data Home Medications Medication Instructions Recorded Confirmed Albuterol Sulfate [Ventolin HFA] 1 - 2 puff INHALATION RT-Q4H PRN 08/06/2103/22 Cyclobenzaprine [Flexeril] 10 mg PO HS 08/06/21 03/22/24 HYDROcodone/APAP 10-325MG [[place] 1 tab PO Q6H PRN 09/26/21 03/22/24 10-325] ALPRAZolam [Xanax] 1 mg PO TID PRN 12/04/23 03/22/24 Albuterol Nebulized [Ventolin 2.5 mg INHALATION RT-Q6H PRN 03/22/24 03/22/24 Nebulized] Famotidine [Pepcid] 20 mg PO BID PRN 03/22/24 03/22/24 Furosemide [Lasix] 20 mg PO BID 03/22/24 03/22/24 Omeprazole [PriLOSEC] 40 mg PO BID 03/22/24 03/22/24 Ondansetron Odt [Zofran Odt] 4 mg PO Q8HR PRN 03/22/24 03/22/24 polyethylene glycoL 3350 [Miralax] 17 gm PO DAILY PRN 03/22/24 03/22/24 predniSONE [Deltasone] 20 mg PO BID 03/22/24 03/22/24 traZODone HCL 150 mg PO HS PRN 03/22/24 03/22/24 Allergies Allergy/AdvReac Type Severity Reaction Status Date / Time fentanyl AdvReac Hallucinati Verified 03/22/24 13:01 ons Review of Systems ROS Statement: Those systems with pertinent positive or pertinent negative responses have been documented in the HPI. ROS Other: All systems not noted in ROS Statement are negative. Past Medical History Past Medical History: COPD, GERD/Reflux, Pneumonia Additional Past Medical History / Comment(s): chiari type 1 malformation, anemia-receiving iron infusions, a 'leaky' valve-follows w/ Dr Suki Navarrete, has O2 2L/min NC prn - has not used in 1 mo. History of Any Multi-Drug Resistant Organisms: None Reported Past Surgical History: Back Surgery Additional Past Surgical History / Comment(s): lumbar fusion surgery 2005 Past Anesthesia/Blood Transfusion Reactions: No Reported Reaction Additional Past Anesthesia/Blood Transfusion Reaction / Comment(s): no reactions to prior blood transfusions Past Psychological History: Anxiety Smoking Status: Current every day smoker - Past Family History Mother Family Medical History: No Reported History Father Family Medical History: Cancer Additional Family Medical History / Comment(s): leukemia General Exam Limitations: no limitations General appearance: alert, in no apparent distress, anxious Head exam: Present: atraumatic, normocephalic Eye exam: Present: normal appearance, PERRL Neck exam: Present: normal inspection. Absent: tenderness, meningismus Respiratory exam: Present: normal lung sounds bilaterally. Absent: respiratory distress, wheezes Cardiovascular Exam: Present: regular rate, normal rhythm GI/Abdominal exam: Present: soft. Absent: distended, tenderness, guarding Extremities exam: Present: normal inspection, normal capillary refill. Absent: pedal edema Neurological exam: Present: alert, oriented X3 Psychiatric exam: Present: anxious Skin exam: Present: warm, dry, intact, normal color Course Vital Signs 03/22/24 03/22/24 10:50 14:09 Temperature 97.7 F Pulse Rate 102 H 80 Respiratory 18 18 Rate Blood Pressure 139/91 132/90 O2 Sat by Pulse 99 100 Oximetry Medical Decision Making - Medical Decision Making Was pt. sent in by a medical professional or institution (, PA, OXYGEN FURNACE OPERATOR, urgent care, hospital, or group home...) When possible be specific @ -No Did you speak to anyone other than the patient for history (EMS, parent, family, police, friend...)? What history was obtained from this source @ -No Did you review nursing and triage notes (agree or disagree)? Why? @ -I reviewed and agree with nursing and triage notes Were old charts reviewed (outside hosp., previous admission, EMS record, old EKG, old radiological studies, urgent care reports/EKG's, group home records)? Report findings @ -No old charts were reviewed Differential GI Bleed: Esophageal varices, aortoenteric fistula, Vivian-Carrasco, gastritis, peptic ulcer disease, diverticulosis, inflammatory bowel disease, hemorrhoids, fissure, colitis, malignancy, Meckel's diverticulum, this is not meant to be an all- inclusive list. EKG interpreted by me (3pts min.). @ -As above X-rays interpreted by me (1pt min.). @ -None done CT interpreted by me (1pt min.). @ -None done U/S interpreted by me (1pt. min.). @ -None done What testing was considered but not performed or refused? (CT, X-rays, U/S, l abs)? Why? @ -None What meds were considered but not given or refused? Why? @ -None Did you discuss the management of the patient with other professionals (professionals i.e. , PA, OXYGEN FURNACE OPERATOR, lab, RT, psych nurse, manager social work, liquor grinding mill operator, teacher, tank officer, outsole caser)? Give summary @ -No Was smoking cessation discussed for >3mins.? @ -No Was critical care preformed (if so, how long)? @ -No Were there social determinants of health that impacted care today? How? (Homelessness, low income, unemployed, alcoholism, drug addiction, transportation, low edu. Level, literacy, decrease access to med. care, long term, rehab)? @ -No Was there de-escalation of care discussed even if they declined (Discuss DNR or withdrawal of care, Hospice)? DNR status @ -No What co-morbidities impacted this encounter? (DM, HTN, Smoking, COPD, CAD, Cancer, CVA, ARF, Chemo, Hep., AIDS, mental health diagnosis, sleep apnea, morbid obesity)? @Gastric ulcer Was patient admitted / discharged? Hospital course, mention meds given and route, prescriptions, significant lab abnormalities, going to OR and other pertinent info. @44-year-old female with chronic pain presenting with nausea and vomiting and inability to take her oral pain medication. Patient states she has had several episodes of vomiting and did report blood in the vomit but she had vomited just prior to my evaluation this was clear watery with no blood. Hemoglobin is stable and improved from prior. Vital signs are stable. Remainder of her lab oratory testing is unremarkable. After IV pain medication she does feel significantly better. She will continue taking her home medication as prescribed and follow-up with her primary care provider. Undiagnosed new problem with uncertain prognosis? @ -No Drug Therapy requiring intensive monitoring for toxicity (Heparin, Nitro, Insulin, Cardizem)? @ -No Were any procedures done? @ -No Diagnosis/symptom? @ -[Nausea vomiting, chronic pain Acute, or Chronic, or Acute on Chronic? @ -Acute on chronic Uncomplicated (without systemic symptoms) or Complicated (systemic symptoms)? @ -[default Side effects of treatment? @ -No Exacerbation, Progression, or Severe Exacerbation? @ -No Poses a threat to life or bodily function? How? (Chest pain, [place], [place], pneumonia, PE, COPD, DKA, ARF, appy, cholecystitis, CVA, Diverticulitis, Homicidal, Suicidal, threat to staff... and all critical care pts) @ -[Low risk at this time - Lab Data Result diagrams: 03/22/24 12:58 03/22/24 12:58 Lab Results 03/22/24 03/22/24 03/22/24 Range/Units 12:58 12:58 12:58 WBC 9.7 (3.8-10.6) k/uL RBC 3.74 L (3.80-5.40) m/uL Hgb 11.7 (11.4-16.0) gm/dL Hct 36.9 (34.0-46.0) % MCV 98.8 (80.0-100.0) fL MCH 31.4 (25.0-35.0) pg MCHC 31.8 (31.0-37.0) g/dL RDW 19.0 H (11.5-15.5) % Plt Count 456 H (150-450) k/uL MPV 6.3 Neutrophils % 75 % Lymphocytes % 15 % Monocytes % 5 % Eosinophils % 4 % Basophils % 0 % Neutrophils # 7.3 (1.3-7.7) k/uL Lymphocytes # 1.4 (1.0-4.8) k/uL Monocytes # 0.5 (0-1.0) k/uL Eosinophils # 0.4 (0-0.7) k/uL Basophils # 0.0 (0-0.2) k/uL Hypochromasia Slight Anisocytosis Slight Macrocytosis Slight PT 10.0 (10.0-12.5) sec INR 0.9 (<1.2) APTT 26.8 (22.0-30.0) sec Sodium 130 L (137-145) mmol/L Potassium 4.4 (3.5-5.1) mmol/L Chloride 102 (98-107) mmol/L Carbon Dioxide 25 (22-30) mmol/L Anion Gap 3 mmol/L BUN 12 (7-17) mg/dL Creatinine 0.49 L (0.52-1.04) mg/dL Est GFR (CKD-EPI)AfAm >90 (>60 ml/min/1.73 sqM) Est GFR (CKD-EPI)NonAf >90 (>60 ml/min/1.73 sqM) Glucose 69 L (74-99) mg/dL Calcium 9.5 (8.4-10.2) mg/dL Total Bilirubin 0.4 (0.2-1.3) mg/dL AST 29 (14-36) U/L ALT 14 (4-34) U/L Alkaline Phosphatase 80 (38-126) U/L Total Protein 6.6 (6.3-8.2) g/dL Albumin 4.0 (3.5-5.0) g/dL Urine Color Urine Appearance (Clear) Urine pH (5.0-8.0) Ur Specific Mallie (1.001-1.035) Urine Protein (Negative) Urine Glucose (UA) (Negative) Urine Ketones (Negative) Urine Blood (Negative) Urine Nitrite (Negative) Urine Bilirubin (Negative) Urine Urobilinogen (<2.0) mg/dL Ur Leukocyte Esterase (Negative) 03/22/24 Range/Units 14:08 WBC (3.8-10.6) k/uL RBC (3.80-5.40) m/uL Hgb (11.4-16.0) gm/dL Hct (34.0-46.0) % MCV (80.0-100.0) fL MCH (25.0-35.0) pg MCHC (31.0-37.0) g/dL RDW (11.5-15.5) % Plt Count (150-450) k/uL MPV Neutrophils % % Lymphocytes % % Monocytes % % Eosinophils % % Basophils % % Neutrophils # (1.3-7.7) k/uL Lymphocytes # (1.0-4.8) k/uL Monocytes # (0-1.0) k/uL Eosinophils # (0-0.7) k/uL Basophils # (0-0.2) k/uL Hypochromasia Anisocytosis Macrocytosis PT (10.0-12.5) sec INR (<1.2) APTT (22.0-30.0) sec Sodium (137-145) mmol/L Potassium (3.5-5.1) mmol/L Chloride (98-107) mmol/L Carbon Dioxide (22-30) mmol/L Anion Gap mmol/L BUN (7-17) mg/dL Creatinine (0.52-1.04) mg/dL Est GFR (CKD-EPI)AfAm (>60 ml/min/1.73 sqM) Est GFR (CKD-EPI)NonAf (>60 ml/min/1.73 sqM) Glucose (74-99) mg/dL Calcium (8.4-10.2) mg/dL Total Bilirubin (0.2-1.3) mg/dL AST (14-36) U/L ALT (4-34) U/L Alkaline Phosphatase (38-126) U/L Total Protein (6.3-8.2) g/dL Albumin (3.5-5.0) g/dL Urine Color Colorless Urine Appearance Clear (Clear) Urine pH 6.0 (5.0-8.0) Ur Specific Mallie 1.003 (1.001-1.035) Urine Protein Negative (Negative) Urine Glucose (UA) Negative (Negative) Urine Ketones Negative (Negative) Urine Blood Negative (Negative) Urine Nitrite Negative (Negative) Urine Bilirubin Negative (Negative) Urine Urobilinogen <2.0 (<2.0) mg/dL Ur Leukocyte Esterase Negative (Negative) Disposition Clinical Impression: Gastritis, Nausea & vomiting, Chronic pain Disposition: HOME SELF-CARE Condition: Fair Instructions (If sedation given, give patient instructions): Acute Nausea and Vomiting (ED) Is patient prescribed a controlled substance at d/c from ED?: No Referrals: Michelle Grissom MD [Primary Care Provider] - 1-2 days Time of Disposition: 14:43
[2024-03-22] MEDS: SODIUM CHLORIDE 0.9% 1,000 ML IV ONE (13:03)
[2024-03-22] MEDS: HYDROmorphone 1 MG/ML 1 ML SYRINGE IVP STA (13:03)
[2024-03-22] MEDS: PANTOPRAZOLE 40 MG/10 ML VIAL IVP STA (13:04)
[2024-03-22] MEDS: ONDANSETRON 4 MG/2 ML VIAL IVP STA (13:05)
[2024-03-22 13:18] LABS: Anisocytosis Slight; Basophils % (A) 0 %; Eosinophils # (A) 0.4 k/uL (0-0.7); Eosinophils % (A) 4 %; HCT 36.9 % (34.0-46.0); HGB 11.7 gm/dL (11.4-16.0); Hypochromasia Slight; Lymphocytes # (A) 1.4 k/uL (1.0-4.8); Lymphocytes % (A) 15 %; MCH 31.4 pg (25.0-35.0); MCHC 31.8 g/dL (31.0-37.0); MCV 98.8 fL (80.0-100.0); Macrocytosis Slight; Mean Platelet Volume 6.3; Monocytes # (A) 0.5 k/uL (0-1.0); Monocytes % (A) 5 %; Neutrophils # (A) 7.3 k/uL (1.3-7.7); Neutrophils % (A) 75 %; Platelet Count 456 k/uL (150-450); RBC 3.74 m/uL (3.80-5.40); WBC 9.7 k/uL (3.8-10.6)
[2024-03-22 13:29] LABS: ALT 14 U/L (4-34); African American GFR (CKD) >90 (>60 ml/min/1.73 sqM); Anion Gap 3 mmol/L; Blood Urea Nitrogen 12 mg/dL (7-17); Calcium 9.5 mg/dL (8.4-10.2); Carbon Dioxide 25 mmol/L (22-30); Chloride 102 mmol/L (98-107); Glucose 69 mg/dL (74-99); Non-African American GFR(CKD) >90 (>60 ml/min/1.73 sqM); Sodium 130 mmol/L (137-145); Total Bilirubin 0.4 mg/dL (0.2-1.3); Total Protein 6.6 g/dL (6.3-8.2)
[2024-03-22 13:33] LABS: AST 29 U/L (14-36); Alkaline Phosphatase 80 U/L (38-126); Potassium 4.4 mmol/L (3.5-5.1)
[2024-03-22 13:41] LABS: INR 0.9 (<1.2); Partial Thromboplastin Time 26.8 sec (22.0-30.0)
[2024-03-22 14:26] LABS: Appearance,Urine Clear (Clear); Bilirubin,Urine Negative (Negative); Blood,Urine Negative (Negative); Color,Urine Colorless; Glucose,Urine (UA) Negative (Negative); Ketones,Urine Negative (Negative); Leukocyte Esterase,Urine Negative (Negative); Nitrite,Urine Negative (Negative); Protein,Urine Negative (Negative); Specific Gravity,Urine 1.003 (1.001-1.035); Urobilinogen,Urine <2.0 mg/dL (<2.0)
[2024-03-22 15:18] VITALS: BP 136/90; PULSE 92; RESP 20
== END 2024-03-22 15:19 | disposition home or self-care (01) ==
LOC: EC 10:44
CPT/HCPCS: 36415; 80053; 81003; 85025; 85610; 85730; 96361; 96374; 96375; 99285

== ENCOUNTER → 2024-04-17 | Outpatient (CLI) | payer OTHER ==
--- NOTE | 2024-04-17 19:09 | XR ---
EXAMINATION TYPE: XR abdomen 2V DATE OF EXAM: 04/17/2024 6:40 PM CLINICAL INDICATION: Female, 44 years old with history of ANROLD CHIARI DEFORMITY; [facility] COMPARISON: None. TECHNIQUE: Two views of the abdomen were obtained. FINDINGS: The bowel gas pattern is nonspecific without dilated loops of small or large bowel. There i s no evidence for organomegaly or pneumoperitoneum. The osseous structures are intact. No abnormal calcifications are present. Fecal material and gas are demonstrated throughout the colon and rectum. Fixation hardware to the L4-L5 vertebral body appears intact. IMPRESSION: 1. Fixation hardware appears intact. No other metallic densities identified. Cleared for MRI. 2. Nonspecific bowel gas pattern without radiographic evidence for acute process [facility], , 04/17/2024 7:07 PM
== END | disposition home or self-care (01) ==
LOC: RADXRMAIN 17:48
PROVIDERS: ATTEND Family Medicine
CPT/HCPCS: 74019

== ENCOUNTER → 2024-04-23 | Outpatient (CLI) | payer OTHER ==
--- NOTE | 2024-04-23 17:36 | MR ---
EXAMINATION TYPE: MR brain wo/w con DATE OF EXAM: 04/23/2024 COMPARISON: NONE HISTORY: 44-year-old female Q07.00, Arnold Chiari malformation. Headache. TECHNIQUE: Multiplanar, multisequence images of the brain and brainstem were acquired before and aft er administration of 4.5 mL IV Gadobutrol. Diffusion weighted imaging is performed. FINDINGS: No evidence for acute infarction, hemorrhage, mass, mass effect, midline shift, herniation, effacemen t of basal cisterns, or extra-axial fluid collection. The ventricles and sulci are age-appropriate. Major intracranial flow voids are intact. T2/FLAIR weighted sequences show no white matter signal abnormality. Midline structures demonstrate normal morphology. There is up to 8 mm of cerebellar tonsillar ectopia along with crowding of the foramen magnum region. Post contrast images demonstrate no evidence of pathologic enhancement. Dural venous sinuses are pat ent. Leftward nasal septal deviation. Mild mucosal thickening ethmoid air cells. Air-fluid level left maxi llary sinus. Globes are intact. IMPRESSION: 1. Cerebellar tonsillar ectopia up to 8 mm favors Chiari I malformation rather than benign cerebellar tonsillar ectopia. Clinically correlate. 2. No other specific intracranial abnormality seen. 3. Air-fluid level left maxillary sinus. Correlate for any symptoms of acute sinusitis. 4. Incidental leftward nasal septal deviation. [facility], , 04/23/2024 5:33 PM
== END | disposition home or self-care (01) ==
LOC: RADMRIMAIN 11:30
DX: Q07.00 Arnold-Chiari syndrome without spina bifida or hydrocephalus
CPT/HCPCS: 70553

== ENCOUNTER 2025-01-14 15:16 | Observation (INO) | payer OTHER ==
--- NOTE | 2025-01-14 15:46 | ED ---
General Adult HPI - General Chief complaint: Shortness of Breath Stated complaint: SOB Time Seen by Provider: 01/14/25 15:38 Source: patient Mode of arrival: ambulatory Limitations: no limitations - History of Present Illness Initial comments: Patient is a 44-year-old female present to the emergency department with concerns with difficulty breathing. Symptoms started a week ago.. Patient states her sister just had pneumonia. Patient is coughing, nonproductive. Patient does have history of asthma/COPD. No fever. - Related Data Home Medications Medication Instructions Recorded Confirmed Albuterol Sulfate [Ventolin HFA] 1 - 2 puff INHALATION RT-Q4H PRN 08/06/21 01/09/25 Cyclobenzaprine [Flexeril] 10 mg PO HS 08/06/21 01/09/25 HYDROcodone/APAP 10-325MG [[place] 1 tab PO Q6H PRN 09/26/21 01/09/25 10-325] ALPRAZolam [Xanax] 1 mg PO TID PRN 12/04/23 01/09/25 Albuterol Nebulized [Ventolin 2.5 mg INHALATION RT-Q6H PRN 03/22/24 01/09/25 Nebulized] Famotidine [Pepcid] 20 mg PO BID PRN 03/22/24 01/09/25 Furosemide [Lasix] 20 mg PO DAILY 03/22/24 01/09/25 Omeprazole [PriLOSEC] 40 mg PO BID 03/22/24 01/09/25 Ondansetron Odt [Zofran Odt] 4 mg PO Q8HR PRN 03/22/24 01/09/25 polyethylene glycoL 3350 [Miralax] 17 gm PO DAILY PRN 03/22/24 01/09/25 traZODone HCL 150 mg PO HS PRN 03/22/24 01/09/25 Allergies Allergy/AdvReac Type Severity Reaction Status Date / Time fentanyl AdvReac Hallucinati Verified 01/14/25 15:20 ons Review of Systems ROS Statement: Those systems with pertinent positive or pertinent negative responses have been documented in the HPI. ROS Other: All systems not noted in ROS Statement are negative. Constitutional: Denies: fever Eyes: Denies: eye pain ENT: Denies: ear pain Respiratory: Reports: as per HPI, cough, dyspnea Endocrine: Reports: fatigue Musculoskeletal: Denies: back pain Skin: Denies: rash Past Medical History Past Medical History: COPD, GERD/Reflux, Pneumonia Additional Past Medical History / Comment(s): chiari type 1 malformation, anemia-receiving iron infusions, a 'leaky' valve-follows w/ Dr Suki Navarrete, has O2 2L/min [place] prn - has not used in 1 mo. History of Any Multi-Drug Resistant Organisms: None Reported Past Surgical History: Back Surgery Additional Past Surgical History / Comment(s): lumbar fusion surgery 2005 Past Anesthesia/Blood Transfusion Reactions: No Reported Reaction Additional Past Anesthesia/Blood Transfusion Reaction / Comment(s): no reactions to prior blood transfusions Past Psychological History: Anxiety Smoking Status: Current every day smoker Past Alcohol Use History: None Reported Past Drug Use History: Marijuana - Past Family History Mother Family Medical History: No Reported History Father Family Medical History: Cancer Additional Family Medical History / Comment(s): leukemia General Exam Limitations: no limitations General appearance: alert, in no apparent distress Head exam: Present: normocephalic Eye exam: Present: normal appearance Neck exam: Present: normal inspection Respiratory exam: Present: wheezes Cardiovascular Exam: Present: tachycardia GI/Abdominal exam: Present: soft. Absent: tenderness Extremities exam: Present: normal inspection. Absent: pedal edema, calf tenderness Neurological exam: Present: alert Psychiatric exam: Present: normal affect, normal mood Skin exam: Present: normal color Course Vital Signs 01/14/25 01/14/25 01/14/25 15:18 15:48 15:53 Temperature 98.1 F Pulse Rate 114 H 83 97 Respiratory 18 18 16 Rate Blood Pressure 125/65 149/88 119/74 O2 Sat by Pulse 93 L 97 90 L Oximetry 01/14/25 01/14/25 16:43 16:52 Temperature Pulse Rate 93 80 Respiratory Rate Blood Pressure O2 Sat by Pulse Oximetry EKG Findings - EKG Results: EKG: interpreted by ERMD, sinus rhythm, normal axis, normal QRS, normal ST/T Medical Decision Making - Medical Decision Making Was pt. sent in by a medical professional or institution (, PA, FLOOR LAYER TILE, urgent care, hospital, or shelter...) When possible be specific @ -No Did you speak to anyone other than the patient for history (EMS, parent, family, police, friend...)? What history was obtained from this source @ -No Did you review nursing and triage notes (agree or disagree)? Why? @ -I reviewed and agree with nursing and triage notes Were old charts reviewed (outside hosp., previous admission, EMS record, old EKG, old radiological studies, urgent care reports/EKG's, shelter records)? Report findings @ -No old charts were reviewed Differential Diagnosis (chest pain, altered mental status, abdominal pain women, abdominal pain men, vaginal bleeding, weakness, fever, dyspnea, syncope, headache, dizziness, GI bleed, back pain, seizure, CVA, palpatations, mental health, musculoskeletal)? @ -Differential Dyspnea: Coronary syndrome, arrhythmia, tamponade, asthma, COPD, pulmonary embolism, p neumonia, pneumothorax, pulmonary effusion, anaphylaxis, diabetic ketoacidosis, flailed chest, pulmonary contusion, diaphragmatic rupture, anemia, neuromuscular, this is not meant to be an all-inclusive list. EKG interpreted by me (3pts min.). @ -As above X-rays interpreted by me (1pt min.). @ -Chest x-ray without acute abnormality CT interpreted by me (1pt min.). @ -None done U/S interpreted by me (1pt. min.). @ -None done What testing was considered but not performed or refused? (CT, X-rays, U/S, labs)? Why? @ -None What meds were considered but not given or refused? Why? @ -None Did you discuss the management of the patient with other professionals (professionals i.e. , PA, FLOOR L[employer]ER TILE, lab, RT, psych nurse, social studies teacher, product design manager, teacher, precinct commanding officer, correctional case records supervisor)? Give summary @ -Case was discussed with Dr. Villalobos who will admit covering Dr. Mercer Was smoking cessation discussed for >3mins.? @ -No Was critical care preformed (if so, how long)? @ -No Were there social determinants of health that impacted care today? How? (Homelessness, low income, unemployed, alcoholism, drug addiction, transportation, low edu. Level, literacy, decrease access to med. care, assisted, rehab)? @ -No Was there de-escalation of care discussed even if they declined (Discuss DNR or withdrawal of care, Hospice)? DNR status @ -No What co-morbidities impacted this encounter? (DM, HTN, Smoking, COPD, CAD, Cancer, CVA, ARF, Chemo, Hep., AIDS, mental health diagnosis, sleep apnea, morbid obesity)? @ -History of asthma/COPD Was patient admitted / discharged? Hospital course, mention meds given and route, prescriptions, significant lab abnormalities, going to OR and other pertinent info. @ -Patient presents with cough dyspnea and wheezing. On reevaluation only mild improvement. Patient will be admitted. Patient reevaluated and updated. Admission orders written. Undiagnosed new problem with uncertain prognosis? @ -No Drug Therapy requiring intensive monitoring for toxicity (Heparin, Nitro, Insulin, Cardizem)? @ -No Were any procedures done? @ -No Diagnosis/symptom? @ -COPD Acute, or Chronic, or Acute on Chronic? @ -Acute Uncomplicated (without systemic symptoms) or Complicated (systemic symptoms)? @ -Default Side effects of treatment? @ -No Exacerbation, Progression, or Severe Exacerbation? @ -Exacerbation Poses a threat to life or bodily function? How? (Chest pain, [place], [place], pneumonia, PE, COPD, DKA, ARF, appy, cholecystitis, CVA, Diverticulitis, Homicidal, Traci cidal, threat to staff... and all critical care pts) @ -No - Lab Data Result diagrams: 01/14/25 15:37 01/14/25 15:37 Lab Results 01/14/25 01/14/25 01/14/25 Range/Units 15:37 15:37 15:37 WBC 4.96 (4.50-10.00) 10*3/uL RBC 3.35 L (4.10-5.20) 10*6/uL Hgb 7.8 L (12.0-15.0) g/dL Hct 25.8 L (37.2-46.3) % MCV 77.0 L (80.0-97.0) fL MCH 23.3 L (27.0-32.0) pg MCHC 30.2 L (32.0-37.0) g/dL Plt Count 308 (140-440) 10*3/uL MPV 8.2 L (9.5-12.2) fL Immature Gran % (Auto) 0.2 % Neutrophils % 49.6 % Lymphocytes % 29.0 % Monocytes % 11.5 % Eosinophils % 9.1 % Basophils % 0.6 % Immature Gran # 0.01 (0.00-0.04) 10*3/uL Neutrophils # 2.46 (1.80-7.70) 10*3/uL Lymphocytes # 1.44 (0.90-5.00) 10*3/uL Monocytes # 0.57 (0.20-1.00) 10*3/uL Eosinophils # 0.45 H (0.04-0.35) 10*3/uL Basophils # 0.03 (0.00-0.10) 10*3/uL PT 10.4 (10.0-12.5) sec INR 0.9 (<1.2) APTT 21.2 L (22.0-30.0) sec Sodium 129 L (137-145) mmol/L Potassium 4.2 (3.5-5.1) mmol/L Chloride 96 L (98-107) mmol/L Carbon Dioxide 25 (22-30) mmol/L Anion Gap 8 mmol/L BUN 21 H (7-17) mg/dL Creatinine 0.73 (0.52-1.04) mg/dL Est GFR (CKD-EPI)AfAm >90 (>60 ml/min/1.73 sqM) Est GFR (CKD-EPI)NonAf >90 (>60 ml/min/1.73 sqM) Glucose 87 (74-99) mg/dL Plasma Lactic Acid Jimi (0.7-2.0) mmol/L Calcium 9.1 (8.4-10.2) mg/dL Magnesium 2.0 (1.6-2.3) mg/dL Total Bilirubin 0.5 (0.2-1.3) mg/dL AST 38 H (14-36) U/L ALT 11 (4-34) U/L Alkaline Phosphatase 81 (38-126) U/L Total Protein 7.1 (6.3-8.2) g/dL Albumin 4.3 (3.5-5.0) g/dL Influenza Type A (PCR) (Not Detectd) Influenza Type B (PCR) (Not Detectd) RSV (PCR) (Not Detectd) SARS-CoV-2 (PCR) (Not Detectd) 01/14/25 01/14/25 Range/Units 15:37 15:53 WBC (4.50-10.00) 10*3/uL RBC (4.10-5.20) 10*6/uL Hgb (12.0-15.0) g/dL Hct (37.2-46.3) % MCV (80.0-97.0) fL MCH (27.0-32.0) pg MCHC (32.0-37.0) g/dL Plt Count (140-440) 10*3/uL MPV (9.5-12.2) fL Immature Gran % (Auto) % Neutrophils % % Lymphocytes % % Monocytes % % Eosinophils % % Basophils % % Immature Gran # (0.00-0.04) 10*3/uL Neutrophils # (1.80-7.70) 10*3/uL Lymphocytes # (0.90-5.00) 10*3/uL Monocytes # (0.20-1.00) 10*3/uL Eosinophils # (0.04-0.35) 10*3/uL Basophils # (0.00-0.10) 10*3/uL PT (10.0-12.5) sec INR (<1.2) APTT (22.0-30.0) sec Sodium (137-145) mmol/L Potassium (3.5-5.1) mmol/L Chloride (98-107) mmol/L Carbon Dioxide (22-30) mmol/L Anion Gap mmol/L BUN (7-17) mg/dL Creatinine (0.52-1.04) mg/dL Est GFR (CKD-EPI)AfAm (>60 ml/min/1.73 sqM) Est GFR (CKD-EPI)NonAf (>60 ml/min/1.73 sqM) Glucose (74-99) mg/dL Plasma Lactic Acid Jimi 1.0 (0.7-2.0) mmol/L Calcium (8.4-10.2) mg/dL Magnesium (1.6-2.3) mg/dL Total Bilirubin (0.2-1.3) mg/dL AST (14-36) U/L ALT (4-34) U/L Alkaline Phosphatase (38-126) U/L Total Protein (6.3-8.2) g/dL Albumin (3.5-5.0) g/dL Influenza Type A (PCR) Not Detected (Not Detectd) Influenza Type B (PCR) Not Detected (Not Detectd) RSV (PCR) Not Detected (Not Detectd) SARS-CoV-2 (PCR) Not Detected (Not Detectd) Disposition Clinical Impression: COPD (chronic obstructive pulmonary disease) Disposition: ADMITTED IP TO THIS HOSP Is patient prescribed a controlled substance at d/c from ED?: No Referrals: Gretel Phillip III, MD [Primary Care Provider] - 1-2 days Time of Disposition: 17:10
[2025-01-14 15:51] LABS: Basophils # (A) 0.03 10*3/uL (0.00-0.10); Basophils % (A) 0.6 %; Eosinophils # (A) 0.45 10*3/uL (0.04-0.35); Eosinophils % (A) 9.1 %; HCT 25.8 % (37.2-46.3); HGB 7.8 g/dL (12.0-15.0); Lymphocytes # (A) 1.44 10*3/uL (0.90-5.00); Lymphocytes % (A) 29.0 %; MCH 23.3 pg (27.0-32.0); MCHC 30.2 g/dL (32.0-37.0); MCV 77.0 fL (80.0-97.0); Monocytes # (A) 0.57 10*3/uL (0.20-1.00); Monocytes % (A) 11.5 %; Neutrophils # (A) 2.46 10*3/uL (1.80-7.70); Neutrophils % (A) 49.6 %; Platelet Count 308 10*3/uL (140-440); RBC 3.35 10*6/uL (4.10-5.20); RDW 20.5 % (11.5-14.5); WBC 4.96 10*3/uL (4.50-10.00)
[2025-01-14 16:01] LABS: ALT 11 U/L (4-34); African American GFR (CKD) >90 (>60 ml/min/1.73 sqM); Albumin 4.3 g/dL (3.5-5.0); Anion Gap 8 mmol/L; Blood Urea Nitrogen 21 mg/dL (7-17); Calcium 9.1 mg/dL (8.4-10.2); Carbon Dioxide 25 mmol/L (22-30); Chloride 96 mmol/L (98-107); Glucose 87 mg/dL (74-99); Non-African American GFR(CKD) >90 (>60 ml/min/1.73 sqM); Sodium 129 mmol/L (137-145); Total Protein 7.1 g/dL (6.3-8.2)
[2025-01-14 16:12] LABS: Potassium 4.2 mmol/L (3.5-5.1)
[2025-01-14 16:13] LABS: AST 38 U/L (14-36); Alkaline Phosphatase 81 U/L (38-126); Magnesium 2.0 mg/dL (1.6-2.3)
[2025-01-14 16:17] LABS: INR 0.9 (<1.2); Prothrombin Time 10.4 sec (10.0-12.5)
[2025-01-14 16:23] LABS: Partial Thromboplastin Time 21.2 sec (22.0-30.0)
--- NOTE | 2025-01-14 16:30 | XR ---
EXAMINATION TYPE: XR chest 2V DATE OF EXAM: 01/14/2025 4:25 PM COMPARISON: 02/14/2022 CLINICAL INDICATION: Female, 44 years old with history of difficulty breathing, TECHNIQUE: XR chest 2V view(s) obtained. FINDINGS: The heart size is normal. The pulmonary vasculature is normal. The lungs are clear. IMPRESSION: 1. No acute pulmonary process. [facility], Workstation: [facility], 01/14/2025 4:28 PM
[2025-01-14 16:39] LABS: RSV Not Detected (Not Detectd)
[2025-01-14] MEDS: IPRATROPIUM-ALBUTEROL 3 ML NEB INHALATION STA (16:42)
[2025-01-14] MEDS ORDERED: IPRATROPIUM-ALBUTEROL 3 ML NEB INHALATION PRN (17:11)
[2025-01-14] MEDS ORDERED: NALOXONE 0.4 MG/ML 1 ML VIAL IVP PRN (17:11)
[2025-01-14] MEDS: methylPREDNISolone SOD SUCCI 125 MG/2 ML VIAL IV SCH (17:54)
[2025-01-14] MEDS ORDERED: ALBUTEROL NEBULIZED 2.5 MG/3 ML INHALATION PRN (19:59)
[2025-01-14] MEDS: IPRATROPIUM-ALBUTEROL 3 ML NEB INHALATION SCH (20:04)
[2025-01-14] MEDS: FUROSEMIDE 20 MG TAB PO SCH (20:31)
[2025-01-14] MEDS: CYCLOBENZAPRINE 10 MG TAB PO SCH (20:31)
[2025-01-14] MEDS: HYDROcodone/APAP 10-325MG 1 EACH TAB PO PRN (20:31)
[2025-01-14] MEDS: HEPARIN SODIUM,PORCINE 5,000 UNIT/ML 1 ML VIAL SQ SCH (23:29)
--- NOTE | 2025-01-14 23:55 | P.HPIM ---
History of Present Illness H&P Date: 01/14/25 Chief Complaint: Difficulty in breathing Patient is a 44-year-old female with a past medical history of COPD, Chiari type I malformation, iron deficiency anemia requiring IV iron infusions, chronic hypoxic respiratory failure on 2 L oxygen via nasal cannula, anxiety, chronic pain, currently everyday smoker and history of marijuana use and heroin use disorder presents to ER with complaints of difficulty in breathing. Patient has been having symptoms worsening for the past 1 week. Cough with out any sputum production and unable to bring any sputum. Denied any fever or chills. No nausea vomiting abdominal pain or diarrhea. No complaints of chest pain. Patient states that her sister had pneumonia recently. Denied any recent travel. Chest x-ray showed no acute cardiopulmonary process. EKG showed sinus rhythm. Laboratory data showed WBC 4.9 hemoglobin 7.8 and platelets 308 MCV 77.0 Sodium 129 potassium 4.2 chloride 96 bicarb is 25, BUN 21 creatinine 0.73 and blood sugar 87 and magnesium 2.0, AST 38 ALT 11 and alk phos 81 Influenza AB RSV and COVID-19 PCR not detected Review of Systems Constitutional: Patient denies any fever or chills . No generalized weakness or weight loss. Abdomen: Patient denied nausea vomiting and diarrhea and abdominal pain. Cardiovascular: Patient denies any chest pain. Positive for short of breath no palpitations. Respiratory: patient cough without any sputum production. Patient does have wo rsening shortness of breath Neurologic: Patient denied any numbness or tingling. no headache. Musculoskeletal: Patient denies any complaints of joint swelling or deformity. Skin: Negative Psychiatric: Negative Endocrine: No heat or cold intolerance. No recent weight gain. Genitourinary: No dysuria or hematuria. All other 14 point ROS negative except the above Past Medical History Past Medical History: COPD, GERD/Reflux, Pneumonia Additional Past Medical History / Comment(s): chiari type 1 malformation, anemia-receiving iron infusions, a 'leaky' valve-follows w/ Dr Suki Navarrete, has O2 2L/min [place] prn - has not used in 1 mo. History of Any Multi-Drug Resistant Organisms: None Reported Past Surgical History: Back Surgery Additional Past Surgical History / Comment(s): lumbar fusion surgery 2005 Past Anesthesia/Blood Transfusion Reactions: No Reported Reaction Additional Past Anesthesia/Blood Transfusion Reaction / Comment(s): no reactions to prior blood transfusions Past Psychological History: Anxiety Smoking Status: Current every day smoker Past Alcohol Use History: None Reported Additional Past Alcohol Use History / Comment(s): drinks alcohol occasionally, says a 3-4 times a year, started smoking at age 14, currently 1/2ppd Past Drug Use History: Marijuana Additional Drug Use History / Comment(s): patient reports heroin intermittently 2020 but none since then. No longer uses marijuana - Past Family History Mother Family Medical History: No Reported History Father Family Medical History: Cancer Additional Family Medical History / Comment(s): leukemia Medications and Allergies Home Medications Medication Instructions Recorded Confirmed Type Albuterol Sulfate [Ventolin HFA] 1 - 2 puff INHALATION RT-Q4H PRN 08/06/21 01/14/25 History Cyclobenzaprine [Flexeril] 10 mg PO HS 08/06/21 01/14/25 History HYDROcodone/APAP 10-325MG [[place] 1 tab PO Q6H PRN 09/26/21 01/14/25 History 10-325] ALPRAZolam [Xanax] 1 mg PO TID PRN 12/04/23 01/14/25 History Albuterol Nebulized [Ventolin 2.5 mg INHALATION RT-Q6H PRN 03/22/24 01/14/25 History Nebulized] Furosemide [Lasix] 20 mg PO BID 03/22/24 01/14/25 History Lidocaine 4% Patch 1 patch TOPICAL DAILY PRN 01/14/25 01/14/25 History Omeprazole [PriLOSEC] 40 mg PO AC-LUNCH 01/14/25 01/14/25 History predniSONE [Deltasone] 20 mg PO BID 01/14/25 01/14/25 History traZODone HCL [Desyrel] 100 mg PO HS 01/14/25 01/14/25 History Allergies Allergy/AdvReac Type Severity Reaction Status Date / Time fentanyl AdvReac Hallucinati Verified 01/14/25 17:44 ons Physical Exam Vitals: Vital Signs Temp Pulse Pulse Resp BP BP Pulse Ox 01/14/25 20:15 76 01/14/25 20:06 74 01/14/25 19:32 98.2 F 84 18 108/61 94 L 01/14/25 17:58 82 18 116/75 95 01/14/25 16:52 80 01/14/25 16:43 93 01/14/25 15:53 97 16 119/74 90 L 01/14/25 15:48 83 18 149/88 97 01/14/25 15:18 98.1 F 114 H 18 125/65 93 L Intake and Output 01/14/25 01/14/25 01/15/25 14:59 22:59 06:59 Other: # Voids 1 Weight 46.72 kg PHYSICAL EXAMINATION: Patient is sitting in the bed and mild acute distress due to difficulty in breathing, awake alert and oriented.. HEENT: Normocephalic. Neck is supple. Pupils reactive. Nostrils clear. Oral cavity is moist. Neck reveals no JVD, carotid bruits, or thyromegaly. CHEST EXAMINATION: Trachea is central. Symmetrical expansion. Bilateral diffuse wheezing and rhonchi. Using accessory muscles. CARDIAC: Normal S1, S2 with no gallops. Systolic murmur. ABDOMEN: Soft. Bowel sounds normal. No organomegaly. No abdominal bruits. Extremities: reveal no edema. No clubbing or cyanosis Neurologically awake, alert, oriented x3 with well-coordinated movements. No focal deficits noted Skin: No rash or skin lesions. Psychiatric: Coperative. Nonsuicidal, anxious. Musculoskeletal: No joint swelling or deformity. Normal range of motion. Results CBC & Chem 7: 01/14/25 15:37 01/14/25 15:37 Labs: Abnormal Lab Results - Last 24 Hours (Table) 01/14/25 01/14/25 01/14/25 Range/Units 15:37 15:37 15:37 RBC 3.35 L (4.10-5.20) 10*6/uL Hgb 7.8 L (12.0-15.0) g/dL Hct 25.8 L (37.2-46.3) % MCV 77.0 L (80.0-97.0) fL MCH 23.3 L (27.0-32.0) pg MCHC 30.2 L (32.0-37.0) g/dL MPV 8.2 L (9.5-12.2) fL Eosinophils # 0.45 H (0.04-0.35) 10*3/uL APTT 21.2 L (22.0-30.0) sec Sodium 129 L (137-145) mmol/L Chloride 96 L (98-107) mmol/L BUN 21 H (7-17) mg/dL AST 38 H (14-36) U/L Thrombosis Risk Factor Assmnt - DVT/VTE Prophylaxis DVT/VTE Prophylaxis: Pharmacologic Prophylaxis ordered Assessment and Plan Assessment: Shortness of breath secondary to acute COPD exacerbation Currently everyday smoker Microcytic iron deficiency anemia requiring iron infusions as an outpatient. Hemoglobin 7.8 Hypovolemic hyponatremia Chiari type I malformation Chronic hypoxic respiratory requiring 2 L oxygen via nasal cannula Anxiety Chronic back pain Currently everyday smoker History of marijuana use and heroin use DVT prophylaxis with heparin subcu Plan: Patient will be continued on oxygen supplementation as needed. Continue with IV Solu-Medrol 60 mg Q6 hourly and DuoNebs and Pulmicort/Perforomist. Continue with pain management with [place] 10 as per home regimen. Continue with her home medications. Continue GI and DVT prophylaxis. Smoking cessation has been counseled. Follow-up closely. Time with Patient: Greater than 30
[2025-01-15 06:29] LABS: Basophils # (A) 0.00 10*3/uL (0.00-0.10); Basophils % (A) 0.0 %; Eosinophils # (A) 0.00 10*3/uL (0.04-0.35); Eosinophils % (A) 0.0 %; HCT 24.9 % (37.2-46.3); HGB 7.5 g/dL (12.0-15.0); Lymphocytes # (A) 0.28 10*3/uL (0.90-5.00); Lymphocytes % (A) 8.8 %; MCH 23.5 pg (27.0-32.0); MCHC 30.1 g/dL (32.0-37.0); MCV 78.1 fL (80.0-97.0); Monocytes # (A) 0.03 10*3/uL (0.20-1.00); Monocytes % (A) 0.9 %; Neutrophils # (A) 2.86 10*3/uL (1.80-7.70); Neutrophils % (A) 90.0 %; Platelet Count 344 10*3/uL (140-440); RBC 3.19 10*6/uL (4.10-5.20); RDW 21.0 % (11.5-14.5); WBC 3.18 10*3/uL (4.50-10.00)
[2025-01-15 06:52] LABS: African American GFR (CKD) >90 (>60 ml/min/1.73 sqM); Anion Gap 7 mmol/L; Blood Urea Nitrogen 15 mg/dL (7-17); Calcium 9.4 mg/dL (8.4-10.2); Carbon Dioxide 26 mmol/L (22-30); Chloride 101 mmol/L (98-107); Glucose 162 mg/dL (74-99); Non-African American GFR(CKD) >90 (>60 ml/min/1.73 sqM); Potassium 4.1 mmol/L (3.5-5.1); Sodium 134 mmol/L (137-145)
[2025-01-15] MEDS: FORMOTEROL FUMARATE 20 MCG/2 ML NEBU INHALATION SCH (08:41)
[2025-01-15] MEDS: BUDESONIDE 0.5 MG/2 ML NEBU INHALATION SCH (08:41)
[2025-01-15 10:17] VITALS: BMI 17.6
[2025-01-15] MEDS: LIDOCAINE 4% PATCH TOPICAL PRN (12:06)
[2025-01-15] MEDS: PANTOPRAZOLE 40 MG TABLET PO SCH (12:06)
[2025-01-15] MEDS: MORPHINE SULFATE 2 MG/ML SYRINGE IVP PRN (15:35)
[2025-01-16 02:43] LABS: Ferritin 139.0 ng/mL (10.0-291.0); Iron 14.0 UG/DL (50-170); Total Iron Binding Capacity 385.0 UG/DL (228-460)
--- NOTE | 2025-01-16 04:15 | P.PN ---
Subjective Progress Note Date: 01/15/25 Patient is a 44-year-old female with a past medical history of COPD, Chiari type I malformation, iron deficiency anemia requiring IV iron infusions, chronic hypoxic respiratory failure on 2 L oxygen via nasal cannula, anxiety, chronic pain, currently everyday smoker and history of marijuana use and heroin use disorder presents to ER with complaints of difficulty in breathing. Patient has been having symptoms worsening for the past 1 week. Cough with out any sputum production and unable to bring any sputum. Denied any fever or chills. No nausea vomiting abdominal pain or diarrhea. No complaints of chest pain. Patient states that her sister had pneumonia recently. Denied any recent travel. Chest x-ray showed no acute cardiopulmonary process. EKG showed sinus rhythm. Laboratory data showed WBC 4.9 hemoglobin 7.8 and platelets 308 MCV 77.0 Sodium 129 potassium 4.2 chloride 96 bicarb is 25, BUN 21 creatinine 0.73 and blood sugar 87 and magnesium 2.0, AST 38 ALT 11 and alk phos 81 Influenza AB RSV and COVID-19 PCR not detected 01/15/2025 Patient is seen in follow-up today continues to be bronchospastic with significant expiratory wheezing noted. Patient is maintained on DuoNeb treat ments along with IV steroids and Pulmicort along with Perforomist added and will continue with current regimen at this time. Sodium slightly lower likely secondary to poor oral intake and patient reports she has been having these issues recently. Patient reports she does not have much of an appetite although is attempting to eat more. Patient reporting significant back pain of which she has chronic back pain and has had surgeries in the past, will continue current pain regimen and also add low-dose morphine as needed. Patient encouraged to increase activity as tolerated and if continuing to be significantly weak may recommend possible PT/OT therapy evaluation. Patient reports she does have oxygen as needed at home and reports prior to arrival she has done using it more frequently. Patient reports she continues to smoke approximately 5 cigarettes/day and is attempting to quit although it helps with her stress. Review of systems: Constitutional: No reports of fatigue, fever, or chills Cardiovascular: No reports of chest pain or palpitations Respiratory: reports of shortness of breath with continued cough GI: No reports of nausea, vomiting, or diarrhea, not much of an appetite although trying to eat more : No reports of dysuria or retention Neurovascular: No reports of weakness, reports of chronic back pain All medications have been reviewed PHYSICAL EXAMINATION: Patient is sitting in the bed and awake alert and oriented x 3, well-developed, thin built, appears older than stated age, cachectic HEENT: Normocephalic. Neck is supple. Pupils reactive. Nostrils clear. Oral cavity is moist. Neck reveals no JVD, carotid bruits, or thyromegaly. CHEST EXAMINATION: Trachea is central. Symmetrical expansion. Bilateral diffuse wheezing and rhonchi. Improved aeration although continues with significant expiratory wheezing noted CARDIAC: Normal S1, S2 with no gallops. Systolic murmur. ABDOMEN: Soft. Thin. Bowel sounds normal. No organomegaly. No abdominal bruit s. Extremities: reveal no edema. No clubbing or cyanosis Neurologically awake, alert, oriented x3 with well-coordinated movements. No focal deficits noted Skin: No rash or skin lesions. Psychiatric: Cooperative. Non-suicidal, anxious. Musculoskeletal: No joint swelling or deformity. Normal range of motion. Assessment: Shortness of breath secondary to acute COPD exacerbation Microcytic iron deficiency anemia requiring iron infusions as an outpatient. Hemoglobin 7.8 Hypovolemic hyponatremia, improved Chiari type I malformation Chronic hypoxic respiratory requiring 2 L oxygen via nasal cannula Anxiety Chronic back pain Moderate protein calorie malnutrition with a BMI of 17.7 Currently everyday smoker History of marijuana use and heroin use DVT prophylaxis with heparin subcu GI prophylaxis Full code Plan: Patient is continued on IV Solu-Medrol 60 mg Q6 hourly and DuoNebs and P ulmicort/Perforomist. Patient currently on room air and reports she has oxygen that she uses as needed at home Continue with pain management with [place] 10 as per home regimen. Continue with her home medications. Continue GI and DVT prophylaxis. Smoking cessation has been counseled. Patient reports she is down to approximately 5 cigarettes/day Encouraged to increase activity as tolerated Follow-up on repeat labs Possible discharge planning in the next 24 hours The impression and plan of care has been dictated by Shannan Blanco, Nurse Practitioner as directed. Dr. Radha MD I have performed a history and examination and MDM of this patient, discussed the same with the dictator, and agree with the dictator's assessment and plan as written ,documented as a scribe. Based on total visit time, I have performed more than 50% of the visit. Objective - Vital Signs Vital signs: Vital Signs Temp 98.1 F 01/15/25 13:51 Pulse 92 01/15/25 16:47 Resp 16 01/15/25 13:51 BP 110/72 01/15/25 13:51 Pulse Ox 95 01/15/25 13:51 FiO2 Intake & Output 01/14/25 01/15/25 01/15/25 18:59 06:59 18:59 Intake Total 1316 Balance 1316 Weight 46.72 kg 46.72 kg Intake: Oral 1316 Other: Voiding Method Toilet # Voids 1 - Labs CBC & Chem 7: 01/15/25 05:59 01/15/25 05:59 Labs: Abnormal Lab Results - Last 24 Hours (Table) 01/15/25 01/15/25 Range/Units 05:59 05:59 WBC 3.18 L (4.50-10.00) 10*3/uL RBC 3.19 L (4.10-5.20) 10*6/uL Hgb 7.5 L (12.0-15.0) g/dL Hct 24.9 L (37.2-46.3) % MCV 78.1 L (80.0-97.0) fL MCH 23.5 L (27.0-32.0) pg MCHC 30.1 L (32.0-37.0) g/dL MPV 8.7 L (9.5-12.2) fL Lymphocytes # 0.28 L (0.90-5.00) 10*3/uL Monocytes # 0.03 L (0.20-1.00) 10*3/uL Eosinophils # 0.00 L (0.04-0.35) 10*3/uL Sodium 134 L (137-145) mmol/L Glucose 162 H (74-99) mg/dL
[2025-01-16 06:57] LABS: Basophils # (A) 0.01 10*3/uL (0.00-0.10); Basophils % (A) 0.1 %; Eosinophils # (A) 0.00 10*3/uL (0.04-0.35); Eosinophils % (A) 0.0 %; HCT 24.0 % (37.2-46.3); HGB 7.3 g/dL (12.0-15.0); Lymphocytes # (A) 0.29 10*3/uL (0.90-5.00); Lymphocytes % (A) 1.8 %; MCH 23.9 pg (27.0-32.0); MCHC 30.4 g/dL (32.0-37.0); MCV 78.4 fL (80.0-97.0); Monocytes # (A) 0.39 10*3/uL (0.20-1.00); Monocytes % (A) 2.4 %; Neutrophils # (A) 15.33 10*3/uL (1.80-7.70); Neutrophils % (A) 95.1 %; Platelet Count 318 10*3/uL (140-440); RBC 3.06 10*6/uL (4.10-5.20); RDW 22.6 % (11.5-14.5); WBC 16.12 10*3/uL (4.50-10.00)
[2025-01-16 07:13] LABS: ALT 13 U/L (4-34); AST 18 U/L (14-36); African American GFR (CKD) >90 (>60 ml/min/1.73 sqM); Albumin 4.1 g/dL (3.5-5.0); Alkaline Phosphatase 89 U/L (38-126); Anion Gap 9 mmol/L; Blood Urea Nitrogen 19 mg/dL (7-17); Calcium 9.4 mg/dL (8.4-10.2); Carbon Dioxide 25 mmol/L (22-30); Chloride 96 mmol/L (98-107); Glucose 133 mg/dL (74-99); Magnesium 1.9 mg/dL (1.6-2.3); Non-African American GFR(CKD) >90 (>60 ml/min/1.73 sqM); Potassium 4.0 mmol/L (3.5-5.1); Sodium 130 mmol/L (137-145); Total Protein 6.8 g/dL (6.3-8.2)
[2025-01-16 08:57] LABS: Anisocytosis (M) Present; Hypochromasia (M) Present
[2025-01-16] MEDS: SODIUM FERRIC GLUCONAT-SUCROSE 125 MG in SODIUM CHLORIDE 0.9% 100 ML IVPB SCH (13:40)
--- NOTE | 2025-01-16 21:20 | P.PN ---
Subjective Progress Note Date: 01/16/25 Patient is a 44-year-old female with a past medical history of COPD, Chiari type I malformation, iron deficiency anemia requiring IV iron infusions, chronic hypoxic respiratory failure on 2 L oxygen via nasal cannula, anxiety, chronic pain, currently everyday smoker and history of marijuana use and heroin use disorder presents to ER with complaints of difficulty in breathing. Patient has been having symptoms worsening for the past 1 week. Cough with out any sputum production and unable to bring any sputum. Denied any fever or chills. No nausea vomiting abdominal pain or diarrhea. No complaints of chest pain. Patient states that her sister had pneumonia recently. Denied any recent travel. Chest x-ray showed no acute cardiopulmonary process. EKG showed sinus rhythm. Laboratory data showed WBC 4.9 hemoglobin 7.8 and platelets 308 MCV 77.0 Sodium 129 potassium 4.2 chloride 96 bicarb is 25, BUN 21 creatinine 0.73 and blood sugar 87 and magnesium 2.0, AST 38 ALT 11 and alk phos 81 Influenza AB RSV and COVID-19 PCR not detected 01/15/2025 Patient is seen in follow-up today continues to be bronchospastic with significant expiratory wheezing noted. Patient is maintained on DuoNeb treat ments along with IV steroids and Pulmicort along with Perforomist added and will continue with current regimen at this time. Sodium slightly lower likely secondary to poor oral intake and patient reports she has been having these issues recently. Patient reports she does not have much of an appetite although is attempting to eat more. Patient reporting significant back pain of which she has chronic back pain and has had surgeries in the past, will continue current pain regimen and also add low-dose morphine as needed. Patient encouraged to increase activity as tolerated and if continuing to be significantly weak may recommend possible PT/OT therapy evaluation. Patient reports she does have oxygen as needed at home and reports prior to arrival she has done using it more frequently. Patient reports she continues to smoke approximately 5 cigarettes/day and is attempting to quit although it helps with her stress. 01/16/2025 Patient is seen in follow-up today continues to have significant cough with wheezing and bronchospasms. Patient does have history of iron deficiency anemia and receives iron infusions weekly and iron studies were performed showing iron at 14, TIBC 385, saturation 3.64, transferrin 275 and will start IV iron infusion as hemoglobin is also noted to be low at 7.3. White blood count is elevated likely reactive as patient is maintained on IV steroids. Sodium slightly lower at 130 likely secondary to poor oral intake. Patient reporting multiple family members in the home are sick as well. Influenza, RSV, COVID testing is all negative. Patient remains afebrile and oxygen saturations are 94% on room air. Encouraged increase activity as tolerated. Discussed possible discharge planning in the next 24 hours. Will consult hematology and appreciate input and recommendations. Review of systems: Constitutional: reports of fatigue, no fever, or chills Cardiovascular: No reports of chest pain or palpitations Respiratory: reports of shortness of breath with continued cough with wheezing GI: No reports of nausea, vomiting, or diarrhea, not much of an appetite although trying to eat more : No reports of dysuria or retention Neurovascular: No reports of weakness, reports of chronic back pain All medications have been reviewed Active Medications Hydrocodone Bitart/Acetaminophen (Hydrocodone/Apap 10-325mg 1 Each Tab) 1 each PO Q6H PRN PRN Reason: Pain Last Admin: 01/16/25 14:07 Dose: 1 each Albuterol Sulfate (Albuterol Nebulized 2.5 Mg/3 Ml) 2.5 mg INHALATION RT-Q6H PRN PRN Reason: Shortness Of Breath Albuterol/Ipratropium (Ipratropium-Albuterol 3 Ml Neb) 3 ml INHALATION RT-QID [facility] Last Admin: 01/16/25 11:48 Dose: Not Given Albuterol/Ipratropium (Ipratropium-Albuterol 3 Ml Neb) 3 ml INHALATION RT-Q2H PRN PRN Reason: Shortness Of Breath Or Wheezing Alprazolam (Alprazolam 1 Mg Tab) 1 mg PO TID PRN PRN Reason: Anxiety Last Admin: 01/16/25 09:16 Dose: 1 mg Budesonide (Budesonide 0.5 Mg/2 Ml Nebu) 0.5 mg INHALATION RT-BID [facility] Last Admin: 01/16/25 08:33 Dose: 0.5 mg Cyclobenzaprine HCl (Cyclobenzaprine 10 Mg Tab) 10 mg PO HS [facility] Last Admin: 01/15/25 21:21 Dose: 10 mg Formoterol Fumarate (Formoterol Fumarate 20 Mcg/2 Ml Nebu) 20 mcg INHALATION RT-BID [facility] Last Admin: 01/16/25 08:33 Dose: 20 mcg Furosemide (Furosemide 20 Mg Tab) 20 mg PO BID@0900,1600 [facility] Last Admin: 01/16/25 07:50 Dose: 20 mg Heparin Sodium (Porcine) (Heparin Sodium,Porcine 5,000 Unit/Ml 1 Ml Vial) 5,000 unit SQ Q8HR [facility] Last Admin: 01/16/25 07:51 Dose: Not Given Ferric Sodium Gluconate 125 mg (/ Sodium Chloride) 110 mls @ 100 mls/hr IVPB DAILY [facility] Stop: 01/17/25 22:00 Last Admin: 01/16/25 13:40 Dose: 100 mls/hr Lidocaine (Lidocaine 4% Patch) 1 patch TOPICAL DAILY PRN; Protocol PRN Reason: Pain Last Admin: 01/15/25 12:06 Dose: 1 patch Methylprednisolone Sodium Succinate (Methylprednisolone Sod Succi 125 Mg/2 Ml Vial) 60 mg IV Q6HR [facility] Last Admin: 01/16/25 11:38 Dose: 60 mg Morphine Sulfate (Morphine Sulfate 2 Mg/Ml Syringe) 2 mg IVP Q6HR PRN PRN Reason: Pain/Discomfort Last Admin: 01/16/25 11:52 Dose: 2 mg Naloxone HCl (Naloxone 0.4 Mg/Ml 1 Ml Vial) 0.2 mg IVP Q2M PRN PRN Reason: Opioid Reversal Pantoprazole Sodium (Pantoprazole 40 Mg Tablet) 40 mg PO AC-LUNCH [facility] Last Admin: 01/16/25 11:38 Dose: 40 mg Trazodone HCl (Trazodone Hcl 100 Mg Tab) 100 mg PO HS [facility] Last Admin: 01/15/25 21:21 Dose: 100 mg PHYSICAL EXAMINATION: Patient is sitting in the bed and awake alert and oriented x 3, well-developed, thin built, appears older than stated age, cachectic HEENT: Normocephalic. Neck is supple. Pupils reactive. Nostrils clear. Oral cavi ty is moist. Neck reveals no JVD, carotid bruits, or thyromegaly. CHEST EXAMINATION: Trachea is central. Symmetrical expansion. Bilateral diffuse wheezing and rhonchi. Improved aeration although continues with significant expiratory wheezing noted CARDIAC: Normal S1, S2 with no gallops. Systolic murmur. ABDOMEN: Soft. Thin. Bowel sounds normal. No organomegaly. No abdominal bruits. Extremities: reveal no edema. No clubbing or cyanosis Neurologically awake, alert, oriented x3 with well-coordinated movements. No focal deficits noted Skin: No rash or skin lesions. Psychiatric: Cooperative. Non-suicidal, anxious. Musculoskeletal: No joint swelling or deformity. Normal range of motion. Assessment: Shortness of breath secondary to acute COPD exacerbation Microcytic iron deficiency anemia requiring iron infusions as an outpatient. Hemoglobin 7.3 Hypovolemic hyponatremia Chiari type I malformation Chronic hypoxic respiratory requiring 2 L oxygen via nasal cannula Anxiety Chronic back pain Moderate protein calorie malnutrition with a BMI of 17.7 Currently everyday smoker History of marijuana use and heroin use DVT prophylaxis with heparin subcu GI prophylaxis Full code Plan: Patient is continued on IV Solu-Medrol 60 mg Q6 hourly and DuoNebs and Pulmicort/Perforomist. Patient currently on room air and reports she has oxygen that she uses as needed at home Continue with pain management with [place] 10 as per home regimen. Will continue with morphine as needed. Continue with her home medications. Continue GI and DVT prophylaxis. Smoking cessation has been counseled. Patient reports she is down to approximately 5 cigarettes/day Encouraged to increase activity as tolerated Follow-up on repeat labs. Iron studies are low and will transfuse IV iron. Patient reports she receives transfusions usually weekly in the outpatient setting. Will consult hematology and appreciate input and recommendations Possible discharge planning in the next 24 hours The impression and plan of care has been dictated by Shannan Blanco, Nurse Practitioner as directed. Dr. Michael MD I have performed a history and examination and MDM of this patient, discussed the same with the dictator, and agree with the dictator's assessment and plan as written ,documented as a scribe. Based on total visit time, I have performed more than 50% of the visit. Objective - Vital Signs Vital signs: Vital Signs Temp 98.1 F 01/16/25 07:00 Pulse 100 01/16/25 08:54 Resp 16 01/16/25 07:00 BP 119/77 01/16/25 07:00 Pulse Ox 94 L 01/16/25 08:33 FiO2 21 01/16/25 08:33 Intake & Output 01/15/25 01/16/25 01/16/25 18:59 06:59 18:59 Intake Total 1316 120 Balance 1316 120 Weight 46.72 kg 46.72 kg Intake: Oral 1316 120 Other: Voiding Method Toilet # Voids 1 - Labs CBC & Chem 7: 01/16/25 06:22 01/16/25 06:22 Labs: Abnormal Lab Results - Last 24 Hours (Table) 01/15/25 01/16/25 01/16/25 Range/Units 05:59 06:22 06:22 WBC 16.12 H (4.50-10.00) 10*3/uL RBC 3.06 L (4.10-5.20) 10*6/uL Hgb 7.3 L (12.0-15.0) g/dL Hct 24.0 L (37.2-46.3) % MCV 78.4 L (80.0-97.0) fL MCH 23.9 L (27.0-32.0) pg MCHC 30.4 L (32.0-37.0) g/dL MPV 8.6 L (9.5-12.2) fL Immature Gran # 0.10 H (0.00-0.04) 10*3/uL Neutrophils # 15.33 H (1.80-7.70) 10*3/uL Lymphocytes # 0.29 L (0.90-5.00) 10*3/uL Eosinophils # 0.00 L (0.04-0.35) 10*3/uL Sodium 130 L (137-145) mmol/L Chloride 96 L (98-107) mmol/L BUN 19 H (7-17) mg/dL Glucose 133 H (74-99) mg/dL Iron 14 L (50-170) UG/DL % Saturation 3.64 L (12.00-45.00)
[2025-01-17 05:37] LABS: Basophils # (A) 0.01 10*3/uL (0.00-0.10); Basophils % (A) 0.1 %; Eosinophils # (A) 0.00 10*3/uL (0.04-0.35); Eosinophils % (A) 0.0 %; HCT 25.2 % (37.2-46.3); HGB 7.6 g/dL (12.0-15.0); Lymphocytes # (A) 0.20 10*3/uL (0.90-5.00); Lymphocytes % (A) 1.6 %; MCH 24.4 pg (27.0-32.0); MCHC 30.2 g/dL (32.0-37.0); MCV 80.8 fL (80.0-97.0); Monocytes # (A) 0.31 10*3/uL (0.20-1.00); Monocytes % (A) 2.4 %; Neutrophils # (A) 12.19 10*3/uL (1.80-7.70); Neutrophils % (A) 95.2 %; Platelet Count 295 10*3/uL (140-440); RBC 3.12 10*6/uL (4.10-5.20); WBC 12.80 10*3/uL (4.50-10.00)
[2025-01-17 05:43] LABS: RDW 23.3 % (11.5-14.5)
[2025-01-17 05:52] LABS: African American GFR (CKD) >90 (>60 ml/min/1.73 sqM); Anion Gap 10 mmol/L; Blood Urea Nitrogen 22 mg/dL (7-17); Calcium 9.3 mg/dL (8.4-10.2); Carbon Dioxide 26 mmol/L (22-30); Chloride 101 mmol/L (98-107); Glucose 123 mg/dL (74-99); Non-African American GFR(CKD) >90 (>60 ml/min/1.73 sqM); Potassium 4.2 mmol/L (3.5-5.1); Sodium 137 mmol/L (137-145)
[2025-01-17 08:41] VITALS: BP 102/67; PULSE 101; RESP 16; TEMP 98.2
--- NOTE | 2025-01-20 05:25 | P.DS ---
Providers Date of admission: 01/14/25 17:12 Expected date of discharge: 01/17/25 Attending physician: Kanwal Garcia Consults: 01/16/25 12:39 Consult Physician Urgent Consulting Provider: Jez Marr Consult Reason/Comments: anemia, ZACH, receives o/p iron Do you want consulting provider notified?: Yes Primary care physician: Gretel Phillip Hospital Course: Final diagnosis Shortness of breath secondary to acute COPD exacerbation Microcytic iron deficiency anemia requiring iron infusions as an outpatient. Hemoglobin 7.3 Hypovolemic hyponatremia, improving Chiari type I malformation Chronic hypoxic respiratory requiring 2 L oxygen via nasal cannula Anxiety Chronic back pain Moderate protein calorie malnutrition with a BMI of 17.7 Currently everyday smoker History of marijuana use and heroin use DVT prophylaxis with heparin subcu GI prophylaxis Full code Discharge disposition Patient is being discharged in a stable condition with guarded prognosis to home. Patient will follow-up with Dr. Phillip in the outpatient setting upon discharge. Patient is to continue with steroid taper and also recommend outpatient follow-up with pulmonary as well as hematology as scheduled. Total time taken is greater than 35 minutes. Hospital course This is a 44-year-old female who was recently admitted with shortness of breath secondary to COPD exacerbation. Patient maintained on IV steroids along with [id number] breathing treatments slowly showing some clinical improvement. Patient chronically wears 2 L outpatient as needed and reports had been requiring continuous oxygen this week. Patient reports she has multiple people in the home that are sick and patient underwent virology testing including COVID, RSV, influenza that was negative. Patient does have a chronic history of anemia iron deficient and receives iron infusions outpatient. Hematology was consulted and patient did receive 2 doses of IV iron infusion prior to discharge. Patient is showing some improvement and has been instructed to follow-up with primary care provider along with hematology and pulmonary outpatient. Currently no reports of chest pain, no worsening shortness of breath, or palpitations. Patient is afebrile. No reports of nausea or vomiting and patient is tolerating diet. Patient will be discharged home today. Guarded prognosis and high risk for readmissions given noncompliance Physical exam: Gen: This is a 44-year-old female who is awake, alert and oriented x 3, thin built, elderly appearing, chronically ill-appearing HEENT: Head is atraumatic, normocephalic. Pupils equal, round. Sclerae is anicteric. NECK: Supple. No JVD. No lymphadenopathy. No thyromegaly. LUNGS: Diminished breath sounds bilaterally with forced expiratory wheezes and coarse rhonchi. No intercostal retractions. HEART: Regular rate and rhythm. No murmur. ABDOMEN: Soft. Thin bowel sounds are present. No masses. No tenderness. EXTREMITIES: No pedal edema. No calf tenderness. NEUROLOGICAL: Patient is awake, alert and oriented x3. Cranial nerves 2 through 12 are grossly intact. Please refer to medication reconciliation sheet for a list of medications. The impression and plan of care has been dictated by Shannan Blanco, Nurse Practitioner as directed. Dr. Michael MD I have performed a history and examination and MDM of this patient, discussed the same with the dictator, and agree with the dictator's assessment and plan as written ,documented as a scribe. Based on total visit time, I have performed more than 50% of the visit. Patient Condition at Discharge: Fair Plan - Discharge Summary New Discharge Prescriptions: New Ipratropium-Albuterol Nebulize [Duoneb 0.5 mg-3 mg/3 ml Soln] 3 ml INHALATION RT-QID each Ipratropium-Albuterol Nebulize [Duoneb 0.5 mg-3 mg/3 ml Soln] 3 ml INHALATION RT-Q2H PRN each PRN Reason: Shortness Of Breath Or Wheezing predniSONE See Taper PO DIRECTED #30 tab Continue Albuterol Sulfate [Ventolin HFA] 1 - 2 puff INHALATION RT-Q4H PRN PRN Reason: Shortness Of Breath ALPRAZolam [Xanax] 1 mg PO TID PRN PRN Reason: Anxiety Albuterol Nebulized [Ventolin Nebulized] 2.5 mg INHALATION RT-Q6H PRN PRN Reason: Shortness Of Breath traZODone HCL [Desyrel] 100 mg PO HS predniSONE [Deltasone] 20 mg PO BID Cyclobenzaprine [Flexeril] 10 mg PO HS HYDROcodone/APAP 10-325MG [[place] 10-325] 1 tab PO Q6H PRN PRN Reason: Pain Furosemide [Lasix] 20 mg PO BID Omeprazole [PriLOSEC] 40 mg PO AC-LUNCH Lidocaine 4% Patch 1 patch TOPICAL DAILY PRN PRN Reason: Pain Discharge Medication List Albuterol Sulfate [Ventolin HFA] 1 - 2 puff INHALATION RT-Q4H PRN 08/06/21 [History] Cyclobenzaprine [Flexeril] 10 mg PO HS 08/06/21 [History] HYDROcodone/APAP 10-325MG [[place] 10-325] 1 tab PO Q6H PRN 09/26/21 [History] ALPRAZolam [Xanax] 1 mg PO TID PRN 12/04/23 [History] Albuterol Nebulized [Ventolin Nebulized] 2.5 mg INHALATION RT-Q6H PRN 03/22/24 [History] Furosemide [Lasix] 20 mg PO BID 03/22/24 [History] Lidocaine 4% Patch 1 patch TOPICAL DAILY PRN 01/14/25 [History] Omeprazole [PriLOSEC] 40 mg PO AC-LUNCH 01/14/25 [History] predniSONE [Deltasone] 20 mg PO BID 01/14/25 [History] traZODone HCL [Desyrel] 100 mg PO HS 01/14/25 [History] Ipratropium-Albuterol Nebulize [Duoneb 0.5 mg-3 mg/3 ml Soln] 3 ml INHALATION RT-Q2H PRN each 01/17/25 [Rx] Ipratropium-Albuterol Nebulize [Duoneb 0.5 mg-3 mg/3 ml Soln] 3 ml INHALATION RT-QID each 01/17/25 [Rx] predniSONE See Taper PO DIRECTED #30 tab 01/17/25 [Rx] Follow up Appointment(s)/Referral(s): Gretel Phillip III, MD [Primary Care Provider] - 1-2 days
== END 2025-01-17 13:00 ==
LOC: EC 15:16 → 1SOBS 17:12
PROVIDERS: ADMIT Internal Medicine; ATTEND Internal Medicine
DX: J44.1 Chronic obstructive pulmonary disease with (acute) exacerbation (principal); D50.9 Iron deficiency anemia, unspecified; K21.9 Gastro-esophageal reflux disease without esophagitis; F41.9 Anxiety disorder, unspecified; J96.11 Chronic respiratory failure with hypoxia; E86.1 Hypovolemia; E87.1 Hypo-osmolality and hyponatremia; G93.5 Compression of brain; G89.29 Other chronic pain; M54.9 Dorsalgia, unspecified; Z79.899 Other long term (current) drug therapy; E44.0 Moderate protein-calorie malnutrition; Z68.1 Body mass index [BMI] 19.9 or less, adult; F17.210 Nicotine dependence, cigarettes, uncomplicated
CPT/HCPCS: 96365; 96366 ×2; 96375 ×2; 96376 ×4; 99285; 36415; 94640 ×6; 94760 ×2; 93005; 80053 ×2; 80048 ×2; 82728; 83540; 83550; 83605; 83735 ×2; 85025 ×4; 85610; 85730; 87636; 71046; G0378 ×4; J2916 ×2; J2270 ×3; J2919 ×4